=== PATIENT | female | born 1935 | race Caucasian/White ===

== ENCOUNTER 2016-11-16 14:13 | Emergency (ER) | payer OTHER, MEDICARE ==
[2016-11-16 14:20] VITALS: BMI 18.6
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
[2016-11-16] MEDS ORDERED: ACETAMINOPHEN 325 MG TABLET (FP) PO ONE (16:15)
[2016-11-16] MEDS ORDERED: ACETAMINOPHEN 325 MG TABLET (FP) ONE (16:16)
--- NOTE | 2016-11-16 17:57 | PDOC ---
*Physical Exam - Vital Signs Last Vital Signs Temp Pulse Resp BP Pulse Ox 97.7 F 75 20 112/76 99 11/16/16 14:15 11/16/16 14:15 11/16/16 14:15 11/16/16 14:15 11/16/16 14:15 - Physical Exam Comments: 11/16/16 18:35 GENERAL: Awake, alert, and fully oriented, in no acute distress HEAD: No signs of trauma EYES: PERRLA, EOMI, sclera anicteric, conjunctiva clear ENT: Auricles normal inspection, hearing grossly normal, nares patent, oropharynx clear without exudates. Moist mucosa NECK: Normal ROM, supple, no lymphadenopathy, JVD, or masses LUNGS: Breath sounds equal, clear to auscultation bilaterally. No wheezes, and no crackles HEART: Regular rate and rhythm, normal S1 and S2, no murmurs, rubs or gallops ABDOMEN: Soft, nontender, normoactive bowel sounds. No guarding, no rebound. No masses EXTREMITIES: Normal range of motion, no edema. No clubbing or cyanosis. No cords, erythema, or tenderness NEUROLOGICAL: Cranial nerves II through XII grossly intact. Normal speech, normal gait SKIN: +Small bruise size of a hard boiled egg north of the ankle over the achilles tendon Tendon intact, no evidence of compartment syndrome. Warm, Dry, normal turgor, no rashes or lesions noted. <Ya Connell - Last Filed: 11/16/16 18:37> - Vital Signs Last Vital Signs Temp Pulse Resp BP Pulse Ox 97.7 F 75 20 112/76 99 11/16/16 14:15 11/16/16 14:15 11/16/16 14:15 11/16/16 14:15 11/16/16 14:15 <Jose Roberto Coughlin - Last Filed: 11/16/16 18:51> ED Treatment Course - Medications Given in the ED: ED Medications Discontinued Medications Generic Name Dose Route Start Last Admin Trade Name Freq PRN Reason Stop Dose Admin Acetaminophen 650 mg 11/16/16 16:15 11/16/16 16:24 Tylenol - PO 11/16/16 16:16 650 mg ONCE ONE Administration <aY Connell - Last Filed: 11/16/16 18:37> - Medications Given in the ED: ED Medications Discontinued Medications Generic Name Dose Route Start Last Admin Trade Name Jerry PRN Reason Stop Dose Admin Acetaminophen 650 mg 11/16/16 16:15 11/16/16 16:24 Tylenol - PO 11/16/16 16:16 650 mg ONCE ONE Administration <Jose Roberto Coughlin - Last Filed: 11/16/16 18:51> Medical Decision Making - Medical Decision Making 11/16/16 18:[address] Ring (patient's cousin). Discussed case with family member. <Ya Connell - Last Filed: 11/16/16 18:37> *DC/Admit/Observation/Transfer - Attestations Scribe Attestion: 11/16/16 18:37 Documentation prepared by Ya Connell, acting as medical doctor nuclear medicine for Jose Roberto Coughlin MD/. <Ya Connell - Last Filed: 11/16/16 18:37> - Discharge Dispostion Admit: No - Attestations Physician Attestion: 11/16/16 17:57 I, Dr. Jose Roberto Coughlin, attest that this document has been prepared under my direction and personally reviewed by me in its entirety. I further attest, that it accurately reflects all work, treatment, procedures and medical decision -making performed by me. <Jose Roberto Coughlin - Last Filed: 11/16/16 18:51> Diagnosis at time of Disposition: Traumatic ecchymosis of left lower leg Qualifiers: Encounter type: initial encounter Qualified Code(s): S80.12XA - Contusion of left lower leg, initial encounter - Discharge Dispostion Disposition: HOME Condition at time of disposition: Stable - Referrals Referrals: Winnie Domínguez MD [Primary Care Provider] - Call tomorrow - Patient Instructions Printed Discharge Instructions: DI for Hematoma (Bruise) Additional Instructions: Discharge Instructions: -Take Tylenol if needed for pain -Use Air Cast for comfort -Call your doctor tomorrow to schedule follow up appointment -Return to the ER with any worsening or concerning symptoms - Post Discharge Activity
[2016-11-16 21:25] VITALS: BP 118/66; PULSE 78; TEMP 97.8
== END 2016-11-16 21:23 | disposition home or self-care (01) ==
LOC: JER 14:13 → JERFT 14:13 → JER 21:23
DX: S80.12XA Contusion of left lower leg, initial encounter (principal); W20.8XXA Other cause of strike by thrown, projected or falling object, initial encounter; Y93.89 Activity, other specified; Y92.512 Supermarket, store or market as the place of occurrence of the external cause; I25.10 Atherosclerotic heart disease of native coronary artery without angina pectoris; I10 Essential (primary) hypertension; Z95.5 Presence of coronary angioplasty implant and graft; D45 Polycythemia vera; J44.9 Chronic obstructive pulmonary disease, unspecified; Z85.038 Personal history of other malignant neoplasm of large intestine; Z85.42 Personal history of malignant neoplasm of other parts of uterus
CPT/HCPCS: 73590-TC-LT; 73610-TC-LT; 73630-TC-LT; 99282-25

== ENCOUNTER 2017-07-02 19:06 | Inpatient (IN) | payer OTHER, MEDICARE ==
--- NOTE | 2017-07-02 19:14 | PDOC ---
History of Present Illness - History of Present Illness Initial Comments: 07/02/17 19:30 The patient is an 82 year old female, with a significant past medical history of gout and CHF, who presents to the emergency department by EMS with nasal congestion and cough for 1 week. Patient states that she has productive cough with yellow sputum. Patient also reports having diarrhea recently. She denies recent fevers, chills, headache or dizziness. She denies recent nausea, vomit, diarrhea or constipation. She denies recent dysuria, frequency, urgency or hematuria. She denies recent chest pain or shortness of breath. Allergies: digoxin, diltiazem Past surgical history: None reported. Social history: Nonsmoker. Denies EtOH use and recreational drug use. Primary Care Physician: Winnie Domínguez Cardiology: Brandin Hamm Medication: Lasiks, Metoprolol <Annette Velásquez - Last Filed: 07/02/17 22:34> <Marlen Melo - Last Filed: 07/02/17 23:10> - General Stated Complaint: COLD SYMPTOMS Time Seen by Provider: 07/02/17 19:14 Past History <Annette Velásquez - Last Filed: 07/02/17 22:34> - Past Medical History Anemia: Yes (polycythemia vera) Cancer: Yes (COLON CANCER, status post colectomy 1997, myelofibrosis) Cardiac Disorders: Yes (a-fib, Stent X2 , S/P CARDIAC CATH) CVA: No COPD: Yes CHF: Yes (history of CHF, but echo showed good systolic function.) DVT: No Dementia: No Diabetes: No Dialysis: No GI Disorders: Yes (ACID REFLUX, GERD, S/P partial colectomy, Colon CA) Disorders: (h/o uterine CA) HTN: Yes Hypercholesterolemia: No Liver Disease: No Seizures: No Thyroid Disease: No - Surgical History Abdominal Surgery: Yes (PARTIAL COLON RESECTION) Appendectomy: No Cardiac Surgery: Yes Cholecystectomy: No Lung Surgery: No Orthopedic Surgery: No - Immunization History Immunization Up to Date: Yes - Suicide/Smoking/Psychosocial Hx Smoking Status: No Smoking History: Never smoked Have you smoked in the past 12 months: No Number of Cigarettes Smoked Daily: 0 Hx Alcohol Use: No Drug/Substance Use Hx: No Substance Use Type: None Hx Substance Use Treatment: No <Marlen Melo - Last Filed: 07/02/17 23:10> - Past Medical History Allergies/Adverse Reactions: Allergies Allergy/AdvReac Type Severity Reaction Status Date / Time digoxin Allergy Intermediate Vomiting Verified 06/06/17 10:43 diltiazem HCl [From Cardizem] Allergy Verified 11/16/16 14:20 Home Medications: Ambulatory Orders B-12 06/01/17 Claritin 1 PO DAILY 06/01/17 Feosol 325 mg PO DAILY 06/01/17 Folic Acid 1 mg PO DAILY 06/01/17 Lasix 40 mg PO DAILY 06/01/17 Protonix 06/01/17 Toprol Xl 100 mg PO DAILY 06/01/17 Ciclopirox [Penlac] 6.6 ml TP DAILY #1 bottle 06/06/17 Respiratory Specific PMHX - Complaint Specific PMHX Angina: Yes Pulmonary Embolus: No <KameronMarlenlois Phillips - Last Filed: 07/02/17 23:10> Review of Systems - Review of Systems Comments:: 07/02/17 20:15 CONSTITUTIONAL: Present: fever Absent:chills, diaphoresis, generalized weakness, malaise, loss of appetite HEENT: Present: nasal congestion Absent: rhinorrhea, throat pain, throat swelling, difficulty swallowing, mouth swelling, ear pain, eye pain, visual changes CARDIOVASCULAR: Absent: chest pain, syncope, palpitations, irregular heart rate, lightheadedness , peripheral edema RESPIRATORY: Absent: productive cough with yellow sputum, cough, shortness of breath, dyspnea with exertion, orthopnea, wheezing, stridor, hemoptysis GASTROINTESTINAL: Present: diarrhea Absent: abdominal pain, abdominal distension, nausea, vomiting, constipation, melena, hematochezia GENITOURINARY: Absent: dysuria, frequency, urgency, hesitancy, hematuria, flank pain, genital pain MUSCULOSKELETAL: Absent: myalgia, arthralgia, joint swelling SKIN: Absent: rash, itching, pallor HEMATOLOGIC/IMMUNOLOGIC: Absent: easy bleeding, easy bruising, lymphadenopathy, frequent infections ENDOCRINE: Absent: unexplained weight gain, unexplained weight loss, heat intolerance, cold intolerance NEUROLOGIC: Absent: headache, focal weakness or paresthesias, dizziness, unsteady gait, seizure, mental status changes, bladder or bowel incontinence PSYCHIATRIC: Absent: anxiety, depression, suicidal or homicidal ideation, hallucinations. <Annette Velásquez - Last Filed: 07/02/17 22:34> *Physical Exam - Vital Signs Last Vital Signs Temp Pulse Resp BP Pulse Ox 99.2 F 85 18 125/59 95 07/02/17 19:19 07/02/17 19:19 07/02/17 19:19 07/02/17 19:19 07/02/17 19:19 - Physical Exam Comments: 07/02/17 20:15 GENERAL: Dry, hacking cough. Well developed, well nourished. Awake and alert. No acute distress. HEENT: Normocephalic, atraumatic. PERRLA, EOMI. No conjunctival pallor. Sclera are non- icteric. Moist mucous membranes. Oropharynx is clear. NECK: Supple. Full ROM. No JVD. Carotid pulses 2+ and symmetric, without bruits. No thyromegaly. No lymphadenopathy. CARDIOVASCULAR: Regular rate and rhythm. Systolic murmur. No rubs, or gallops. PULMONARY: Bilateral rhonchi to bases bilaterally. ABDOMINAL: Soft. Non-tender. Non-distended. No rebound or guarding. No organomegaly. Normoactive bowel sounds. MUSCULOSKELETAL Normal range of motion at all joints. No bony deformities or tenderness. No CVA tenderness. EXTREMITIES: Bilateral pedal pitting edema. Fungi on toes. No cyanosis. No clubbing. No calf tenderness. SKIN: Very warm to touch and dry. Normal capillary refill. No rashes. No jaundice. NEUROLOGICAL: Alert, awake, appropriate. Cranial nerves 2-12 intact. No deficits to light touch and temperature in face, upper extremities and lower extremities. No motor deficits in the in face, upper extremities and lower extremities. Normoreflexic in the upper and lower extremities. Normal speech. Toes are down-going bilaterally. Gait is normal without ataxia. PSYCHIATRIC: Cooperative. Good eye contact. Appropriate mood and affect. <Annette Velásquez - Last Filed: 07/02/17 22:34> ED Treatment Course - LABORATORY CBC & Chemistry Diagram: 07/02/17 20:17 07/02/17 21:34 - Consult/PCP Time Called: 22:30 (awaiting call back from Dr. Domínguez) <Annette Velásquez - Last Filed: 07/02/17 22:34> - LABORATORY CBC & Chemistry Diagram: 07/02/17 20:17 07/02/17 21:34 <Marlen Melo - Last Filed: 07/02/17 23:10> *DC/Admit/Observation/Transfer - Attestations Scribe Attestion: 07/02/17 20:19 Documentation prepared by Annette Velásquez, acting as medical van driver for aMrlen Melo MD. <Annette Velásquez - Last Filed: 07/02/17 22:34> - Discharge Dispostion Admit: Yes <Marlen Melo - Last Filed: 07/02/17 23:10> Diagnosis at time of Disposition: Polycythemia rubra vera, Hyponatremia Leukocytosis Qualifiers: Leukocytosis type: other Qualified Code(s): D72.828 - Other elevated white blood cell count Fever Qualifiers: Fever type: due to other condition Qualified Code(s): R50.81 - Fever presenting with conditions classified elsewhere Pneumonia Qualifiers: Pneumonia type: due to unspecified organism Laterality: right Lung location: lower lobe of lung Qualified Code(s): J18.1 - Lobar pneumonia, unspecified organism - Discharge Dispostion Condition at time of disposition: Stable
[2017-07-02] MEDS ORDERED: SODIUM CHLORIDE 0.9% 1000 ML INFUS.BAG IV STA (20:03)
[2017-07-02] MEDS ORDERED: ACETAMINOPHEN 325 MG TABLET (FP) PO ONE (20:04)
[2017-07-02 20:33] LABS: VENOUS PH 7.28 (7.32-7.42)
[2017-07-02 20:33] LABS: HEMATOCRIT 35.2 % (32.4-45.2); HEMOGLOBIN 11.1 GM/dL (10.7-15.3); MCH 30.1 pg (25.7-33.7); MCHC 31.6 g/dl (32.0-36.0); MEAN CELL VOLUME 95.2 fl (80-96); PLATELET COUNT 909 K/MM3 (134-434); RBC 3.69 M/mm3 (3.60-5.2); RDW 20.3 % (11.6-15.6)
[2017-07-02 20:34] LABS: VENOUS PC02 36.4 mmHg (38-52); VENOUS PO2 13.8 mmHg (28-48)
[2017-07-02 20:38] LABS: WHITE BLOOD COUNT 40.8 K/mm3 (4.0-10.0)
[2017-07-02 20:46] LABS: INR 1.24 (0.82-1.09)
[2017-07-02] MEDS ORDERED: LEVOFLOXACIN 500 MG IVPB 500 MG/100 ML BAG IVPB ONE ×2 (21:47→21:54)
[2017-07-02 22:05] LABS: ALBUMIN 3.5 g/dl (3.4-5.0); ANION GAP 15 (8-16); BLOOD UREA NITROGEN 60 mg/dL (7-18); CALCIUM 8.2 mg/dL (8.5-10.1); CHLORIDE 97 mmol/L (98-107); CO2 14 mmol/L (21-32); GLUCOSE,RANDOM 113 mg/dL (74-106); POTASSIUM 5.1 mmol/L (3.5-5.1); SODIUM 126 mmol/L (136-145)
[2017-07-02 22:10] LABS: ALK PHOS 337 U/L (45-117); BILIRUBIN,TOTAL 1.2 mg/dL (0.2-1.0); CREATININE 2.2 mg/dL (0.55-1.02); N-TERMINAL BNP 20916.08 pg/ml (5-450); SGOT/AST 36 U/L (15-37); SGPT/ALT 35 U/L (12-78); TOT PROT 6.9 g/dl (6.4-8.2)
[2017-07-02 22:25] LABS: URINE APPEARANCE SLCLOUDY; URINE BILIRUBIN NEGATIVE (NEGATIVE); URINE BLOOD NEGATIVE (NEGATIVE); URINE COLOR YELLOW; URINE GLUCOSE (UA) NEGATIVE (NEGATIVE); URINE KETONE NEGATIVE (NEGATIVE); URINE LEUK ESTERASE NEGATIVE (NEGATIVE); URINE NITRITE NEGATIVE (NEGATIVE); URINE PROTEIN 3+ (NEGATIVE); URINE UROBILINOGEN NEGATIVE mg/dL (0.2-1.0)
[2017-07-02 22:30] LABS: URINE BACTERIA RARE /hpf (NONE SEEN)
[2017-07-02] MEDS ORDERED: CEFTRIAXONE 1 GM in DEXTROSE 5%-WATER - 50 ML IVPB ONE (22:34)
[2017-07-02] MEDS ORDERED: AZITHROMYCIN IVPB 500 MG in DEXTROSE 5%-WATER - 250 ML IVPB ONE (23:06)
[2017-07-02 23:17] LABS: ANISOCYTOSIS 2+; MACROCYTOSIS 1+; OVALOCYTE 1+
[2017-07-02] MEDS ORDERED: METOPROLOL SUCCINATE 100 MG TAB.SR.24H (FP) PO SCH (23:30)
[2017-07-02] MEDS ORDERED: CLOPIDOGREL BISULFATE 75 MG TABLET (FP) PO SCH (23:30)
[2017-07-02] MEDS ORDERED: CEFTRIAXONE 1 GM/50 ML BAG ONE (23:36)
[2017-07-03] MEDS ORDERED: AZITHROMYCIN IVPB 250 ML IVPB ONE (00:15)
[2017-07-03 03:24] VITALS: BMI 19.6
[2017-07-03] MEDS ORDERED: PT OWN MED DRAWER 7, Y5N ONE ×5 (05:38→16:12)
[2017-07-03] MEDS: CEFTRIAXONE 1 G/50 ML PREMIX 50 ML IVPB SCH (09:13)
[2017-07-03] MEDS: FUROSEMIDE 40 MG/4 ML INJECTABLE VIAL IVPUSH SCH (09:13)
[2017-07-03] MEDS: TOPROL 50 MG PO SCH (09:17)
[2017-07-03] MEDS: PLAVIX 75 MG PO SCH (09:29)
[2017-07-03] MEDS ORDERED: CLOPIDOGREL BISULFATE 75 MG TABLET (FP) PO SCH (10:00)
[2017-07-03] MEDS ORDERED: METOPROLOL SUCCINATE 100 MG TAB.SR.24H (FP) PO SCH (10:00)
--- NOTE | 2017-07-03 10:15 | CON.CARD ---
Consult Consult Specialty:: Cardiology Reason for Consultation:: congestion - History of Present Illness History of Present Illness: The patient is an 82 year old female, with a significant past medical history of gout and CHF, who presents to the emergency department by EMS with nasal congestion and cough for 1 week. Patient states that she has productive cough with yellow sputum. Patient also reports having diarrhea recently. She denies recent fevers, chills, headache or dizziness. She denies recent nausea, vomit, diarrhea or constipation. She denies recent dysuria, frequency, urgency or hematuria. She denies recent chest pain or shortness of breath. Allergies: digoxin, diltiazem Past surgical history: None reported. Social history: Nonsmoker. Denies EtOH use and recreational drug use. Primary Care Physician: Winnie Domínguez Cardiology: Brandin Hamm Medication: Lasiks, Metoprolol PMH AFL RFA 03/10/16 Dr Parrish Colectomy (partial) PCI RCA ISR ARMAAN and LE angiography 09/19/2013 Dr. Mcgee CARDIOLOGY NURSE/stent right SFA 12/12/2013 Dr. Mcgee uterine fibromas removal Ongoing medical problems Anemia ASHD negative MIBI 2010 CAD 3 V ostial RCA 80-90%, mLAD 50%, D1 80% 2011 celiac artery stenosis colon cancer ARMAAN Ostial RCA 2011 [facility] 3V CAD 06/14/13 PAD s/p CARDIOLOGY NURSE RSFA August 2012 Dr. Mcgee PAD s/p right mid SFA stent 2011 Paroxysmal A fib not on AC due to thrombocytosis but bleeding 2014 Paroxysmal A fib not on AC due to thrombocytosis but bleeding 2014 polycythemia vera CARDIOLOGY NURSE right SFA ISR 06/14/13 Dr. Mcgee CARDIOLOGY NURSE/stent RSF November 2013 Dr. Mcgee right subclavian stenosis with steal phenomenon 2016 shingles s/AF ablation dr. Golden Parrish 2015 ECHO 2016 SUMMARY 1. Normal left ventricular size with moderate reduced systolic function; ejection fraction 41%. 2. Moderate global hypokinesis with flattening of septum, due to right ventricle pressure overload. 3. Severe left atrial enlargement. 4. Aortic valve mildly thickened. 5. Moderate mitral valve regurgitation. 6. Severe tricuspid valve regurgitation with right ventricle systolic pressure of 65 mmHg, compatible with severe pulmonary hypertension. - History Source History Provided By: Patient, Medical Record - Past Medical History Cardio/Vascular: Yes: AFIB, CAD (with stents), CHF, HTN, Hyperlipdemia, [place], Other Pulmonary: Yes: COPD. No: Asthma, Bronchitis, Cancer, O2 Dependent, Pneumonia, Previously Intubated, Pulmonary Embolus, Pulmonary Fibrosis, Sleep Apnea, Other Gastrointestinal: Yes: Cancer (colon), GERD ...: No Psych: Yes: Anxiety. 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, [employer] History of Recent Travel: No Home Medications - Allergies Allergies/Adverse Reactions: Allergies Allergy/AdvReac Type Severity Reaction Status Date / Time digoxin Allergy Intermediate Vomiting Verified 07/02/17 23:50 diltiazem HCl [From Cardizem] Allergy Verified 07/02/17 23:50 - Home Medications Home Medications: Ambulatory Orders B-12 06/01/17 Claritin 1 PO DAILY 06/01/17 Feosol 325 mg PO DAILY 06/01/17 Folic Acid 1 mg PO DAILY 06/01/17 Lasix 40 mg PO DAILY 06/01/17 Protonix 40 mg PO QID 06/01/17 Toprol Xl 100 mg PO DAILY 06/01/17 Ciclopirox [Penlac] 6.6 ml TP DAILY #1 bottle 06/06/17 Allopurinol [Zyloprim -] 100 mg PO DAILY 07/03/17 Clopidogrel Bisulfate [Plavix] 75 mg PO DAILY 07/03/17 Multivitamin [Daily Multiple Vitamin] 1 each PO DAILY 07/03/17 Ranitidine HCl [Zantac 75] 75 mg PO ACBK 07/03/17 Ruxolitinib Phosphate [Jakafi] 10 mg PO BID 07/03/17 Family Disease History - Family Disease History Family Disease History: Heart Disease: Father, Mother Review of Systems - Review of Systems Constitutional: reports: No Symptoms Eyes: reports: No Symptoms HENT: reports: No Symptoms Neck: reports: No Symptoms Cardiovascular: reports: No Symptoms Respiratory: reports: Cough Gastrointestinal: reports: No Symptoms Genitourinary: reports: No Symptoms Breasts: reports: No Symptoms Reported Musculoskeletal: reports: No Symptoms Integumentary: reports: No Symptoms Neurological: reports: No Symptoms Endocrine: reports: No Symptoms Hematology/Lymphatic: reports: No Symptoms Psychiatric: reports: No Symptoms Vital Signs: Vital Signs Temperature 97.4 F L 07/03/17 06:00 Pulse Rate 71 07/03/17 06:00 Respiratory Rate 20 07/03/17 06:00 Blood Pressure 128/65 07/03/17 06:00 O2 Sat by Pulse Oximetry (%) 99 07/02/17 23:41 Constitutional: Yes: Well Nourished, No Distress, Calm Eyes: Yes: WNL, Conjunctiva Clear, EOM Intact HENT: Yes: WNL, Atraumatic, Normocephalic Neck: Yes: WNL, Supple, Trachea Midline Respiratory: Yes: WNL, Regular, CTA Bilaterally Gastrointestinal: Yes: WNL, Normal Bowel Sounds Renal/: Yes: WNL Cardiovascular: Yes: WNL, Regular Rate and Rhythm Musculoskeletal: Yes: WNL Extremities: Yes: WNL Integumentary: Yes: WNL Neurological: Yes: WNL, Alert, Oriented ...Motor Strength: WNL Psychiatric: Yes: WNL, Alert, Oriented - Other Data Labs, Other Data: CBC, BMP 07/02/17 20:17 07/02/17 21:34 INR, PTT INR 1.24 (0.82-1.09) H D 07/02/17 20:17 Troponin, BNP 07/02/17 07/02/17 20:17 21:34 Troponin I Cancelled 0.10 H B-Natriuretic Peptide Cancelled 20610.08 H Troponin, BNP 07/02/17 07/02/17 20:17 21:34 Troponin I Cancelled 0.10 H B-Natriuretic Peptide Cancelled 12996.08 H Imaging - Results Chest X-ray: Image Reviewed (cm no i/e) EKG: Pending Problem List - Problems (1) Fever Code(s): R50.9 - FEVER, UNSPECIFIED Qualifiers: Fever type: due to other condition Qualified Code(s): R50.81 - Fever presenting with conditions classified elsewhere (2) Hyponatremia Code(s): E87.1 - HYPO-OSMOLALITY AND HYPONATREMIA (3) Pneumonia Code(s): J18.9 - PNEUMONIA, UNSPECIFIED ORGANISM Qualifiers: Pneumonia type: due to unspecified organism Laterality: right Lung location: lower lobe of lung Qualified Code(s): J18.1 - Lobar pneumonia, unspecified organism (4) Polycythemia rubra vera Code(s): D45 - POLYCYTHEMIA VERA (5) Leukocytosis Code(s): D72.829 - ELEVATED WHITE BLOOD CELL COUNT, UNSPECIFIED Qualifiers: Leukocytosis type: other Qualified Code(s): D72.828 - Other elevated white blood cell count (6) Atrial fibrillation and flutter Code(s): I48.91 - UNSPECIFIED ATRIAL FIBRILLATION; I48.92 - UNSPECIFIED ATRIAL FLUTTER (7) Atypical chest pain Code(s): R07.89 - OTHER CHEST PAIN (8) Hyperlipidemia Code(s): E78.5 - HYPERLIPIDEMIA, UNSPECIFIED (9) Myelofibrosis Code(s): D75.81 - MYELOFIBROSIS (10) Palpitations Code(s): R00.2 - PALPITATIONS (11) Traumatic ecchymosis of left lower leg Code(s): S80.12XA - CONTUSION OF LEFT LOWER LEG, INITIAL ENCOUNTER Qualifiers: Encounter type: initial encounter Qualified Code(s): S80.12XA - Contusion of left lower leg, initial encounter (12) Anemia Code(s): D64.9 - ANEMIA, UNSPECIFIED (13) Atrial fib/flutter, transient Code(s): ROU2277 - (14) CHF (congestive heart failure) Code(s): I50.9 - HEART FAILURE, UNSPECIFIED (15) COPD (chronic obstructive pulmonary disease) Code(s): J44.9 - CHRONIC OBSTRUCTIVE PULMONARY DISEASE, UNSPECIFIED (16) GERD (gastroesophageal reflux disease) Code(s): K21.9 - GASTRO-ESOPHAGEAL REFLUX DISEASE WITHOUT ESOPHAGITIS (17) HTN (hypertension) Code(s): I10 - ESSENTIAL (PRIMARY) HYPERTENSION (18) History of colon cancer Code(s): Z85.038 - PERSONAL HISTORY OF MALIGNANT NEOPLASM OF LARGE INTESTINE (19) History of hypertension Code(s): Z86.79 - PERSONAL HISTORY OF OTHER DISEASES OF THE CIRCULATORY SYSTEM (20) History of uterine cancer Code(s): Z85.42 - PERSONAL HISTORY OF MALIGNANT NEOPLASM OF OTH PRT UTERUS (21) Hyperkalemia Code(s): E87.5 - HYPERKALEMIA (22) Mitral regurgitation Code(s): I34.0 - NONRHEUMATIC MITRAL (VALVE) INSUFFICIENCY Assessment/Plan CHF systolic exacorbation r/o bronchitis cri AFL RFA 03/10/16 Dr Parrish Colectomy (partial) PCI RCA ISR ARMAAN and LE angiography 09/19/2013 Dr. Mcgee CARDIOLOGY NURSE/stent right SFA 12/12/2013 Dr. Mcgee uterine fibromas removal Anemia ASHD negative MIBI 2010 CAD 3 V ostial RCA 80-90%, mLAD 50%, D1 80% 2011 celiac artery stenosis colon cancer ARMAAN Ostial RCA 2011 [facility] 3V CAD 06/14/13 PAD s/p CARDIOLOGY NURSE RSFA August 2012 Dr. Mcgee PAD s/p right mid SFA stent 2011 Paroxysmal A fib not on AC due to thrombocytosis but bleeding 2014 polycythemia vera CARDIOLOGY NURSE right SFA ISR 06/14/13 Dr. Mcgee CARDIOLOGY NURSE/stent RSF November 2013 Dr. Mcgee right subclavian stenosis with steal phenomenon 2015 shingles s/AF ablation dr. Golden Parrish 2015 Plan; lasix abx will f/u
[2017-07-03] MEDS: AZITHROMYCIN IVPB 500 MG in DEXTROSE 5%-WATER - 250 ML IVPB SCH (11:06)
--- NOTE | 2017-07-03 18:12 | PN ---
Progress Note, Physician - Current Medication List Current Medications: Active Medications Furosemide (Lasix Injection -) 40 mg IVPUSH DAILY BRANDEN Last Admin: 07/03/17 09:13 Dose: 40 mg CEFTRIAXONE 1 G/50 ML PREMIX (Ceftriaxone 1 Gm-D5w Bag) 50 mls @ 200 mls/hr IVPB DAILY BRANDEN Last Admin: 07/03/17 09:13 Dose: 200 mls/hr Azithromycin 500 mg/ Dextrose 250 mls @ 250 mls/hr IVPB DAILY BRANDEN Last Admin: 07/03/17 11:06 Dose: 250 mls/hr Lactobacillus Acidophilus (Bacid -) 1 tab PO DAILY BRANDEN Plavix 75 Mg Tablet (- Patient Own Med) 1 each PO DAILY BRANDEN Last Admin: 07/03/17 09:29 Dose: 1 each Toprol Xl 50 Mg Tablet - Patient Own Med 2 each PO DAILY BRANDEN Last Admin: 07/03/17 09:17 Dose: 2 each Non-Formulary Medication (Patient's Own Med) 1 each PO DAILY BRANDEN Non-Formulary Medication (Patient's Own Med) 1 each PO DAILY BRANDEN Non-Formulary Medication (Patient's Own Med) 1 each PO DAILY BRANDEN Non-Formulary Medication (Patient's Own Med) 1 each PO DAILY BRANDEN Ranitidine HCl (Zantac -) 150 mg PO DAILY BRANDEN - Objective Vital Signs: Vital Signs Temperature 97.4 F L 07/03/17 18:06 Pulse Rate 76 07/03/17 18:06 Respiratory Rate 18 07/03/17 18:06 Blood Pressure 135/64 07/03/17 18:06 O2 Sat by Pulse Oximetry (%) 98 07/03/17 09:00 Labs: CBC, BMP 07/02/17 20:17 07/02/17 21:34 INR, PTT INR 1.24 (0.82-1.09) H D 07/02/17 20:17
--- NOTE | 2017-07-03 19:30 | HP ---
Admitting History and Physical - Admission Chief Complaint: weaknes, cough for approximately 2 weeks History of Present Illness: 82 yo female with PMH of CHF and PCV, under treatment with Jakafi came in with complaints of cough. She denies fever. The patient presented to ER and was admitted. She was given Ceftriaxone and Zithromax and immediately after that the patient developed diarrhea, with loose watery stools but without blood or mucosities.The patient denies any abdominal pain. - Past Medical History Cardiovascular: Yes: AFIB, CAD (with stents), CHF, HTN, Hyperlipdemia, [place], Other Pulmonary: Yes: COPD. No: Asthma, Bronchitis, Cancer, O2 Dependent, Pneumonia, Previously Intubated, Pulmonary Embolus, Pulmonary Fibrosis, Sleep Apnea, Other Gastrointestinal: Yes: Cancer (colon), GERD ...: No Heme/Onc: Yes: B12 Deficiency. No: Anemia, Bleeding Disorder, Cancer, Current Radiation Therapy, Hemochromatosis, Hypercoaguable State, Myeloproliferative Synd, Sickle Cell Disease, Sickle Cell Trait, Thrombocytopenia, Other Psych: Yes: Anxiety. 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, [employer] History of Recent Travel: No Home Medications - Allergies Allergies/Adverse Reactions: Allergies Allergy/AdvReac Type Severity Reaction Status Date / Time digoxin Allergy Intermediate Vomiting Verified 07/02/17 23:50 diltiazem HCl [From Cardizem] Allergy Verified 07/02/17 23:50 - Home Medications Home Medications: Ambulatory Orders B-12 06/01/17 Claritin 1 PO DAILY 06/01/17 Feosol 325 mg PO DAILY 06/01/17 Folic Acid 1 mg PO DAILY 06/01/17 Lasix 40 mg PO DAILY 06/01/17 Protonix 40 mg PO QID 06/01/17 Allopurinol [Zyloprim -] 100 mg PO DAILY 07/03/17 Multivitamin [Daily Multiple Vitamin] 1 each PO DAILY 07/03/17 Ranitidine HCl [Zantac 75] 75 mg PO ACBK 07/03/17 Ruxolitinib Phosphate [Jakafi] 10 mg PO BID 07/03/17 Allopurinol [Zyloprim -] 100 mg PO DAILY tablet 07/06/17 Amox-Tr/K Cl [Augmentin 500-125mg Tablet -] 1 tab PO BID@0800,1730 #14 tablet Guaifenesin AC [Robitussin AC -] 10 ml PO Q8H PRN #120 ud MDD 30 07/06/17 Lactobacillus Acidophilus [Bacid -] 1 tab PO BID 7 Days #14 tab 07/06/17 Patient's Own Medication [Patient's Own Med (Nf) -] 1 each PO DAILY med Patient's Own Medication [Patient's Own Med (Nf) -] 1 each PO HS med 07/06/17 Family Disease History - Family Disease History Family Disease History: Heart Disease: Father, Mother Review of Systems - Review of Systems Constitutional: reports: No Symptoms Eyes: reports: No Symptoms HENT: reports: No Symptoms, Hearing Loss Neck: reports: Swollen Glands Cardiovascular: reports: No Symptoms Respiratory: reports: Cough, SOB Gastrointestinal: reports: Diarrhea. denies: Rectal Bleeding, Vomiting, Vomiting Blood Genitourinary: reports: Incontinence Breasts: reports: No Symptoms Reported Musculoskeletal: reports: Muscle Weakness. denies: Joint Pain, Joint Swelling Psychiatric: reports: Anxiety Physical Examination Vital Signs: Vital Signs Temperature 97.4 F L 07/03/17 18:06 Pulse Rate 76 07/03/17 18:06 Respiratory Rate 18 07/03/17 18:06 Blood Pressure 135/64 07/03/17 18:06 O2 Sat by Pulse Oximetry (%) 98 07/03/17 09:00 Constitutional: Yes: No Distress, Calm Eyes: Yes: Conjunctiva Clear HENT: Yes: Atraumatic, Normocephalic Neck: Yes: Supple, Trachea Midline Cardiovascular: Yes: Regular Rate and Rhythm, S1, S2 Respiratory: Yes: Regular, CTA Bilaterally Gastrointestinal: Yes: Soft, Abdomen, Obese. No: Hepatomegaly, Splenomegaly Labs: CBC, BMP 07/02/17 20:17 07/02/17 21:34 Imaging - Results Chest X-ray: Other (no pleural effusion, no infiltrate, no masses) Problem List - Problems (1) Bronchitis Code(s): J40 - BRONCHITIS, NOT SPECIFIED ACUTE OR CHRONIC (2) Atrial fibrillation and flutter Code(s): I48.91 - UNSPECIFIED ATRIAL FIBRILLATION; I48.92 - UNSPECIFIED ATRIAL FLUTTER (3) CHF (congestive heart failure) Code(s): I50.9 - HEART FAILURE, UNSPECIFIED (4) Diarrhea Assessment/Plan: start Bacid 1 tab po bid Code(s): R19.7 - DIARRHEA, UNSPECIFIED
--- NOTE | 2017-07-03 22:03 | EKG ---
Test Reason : Blood Pressure : / mmHG Vent. Rate : 071 BPM Atrial Rate : 071 BPM P-R Int : 180 ms QRS Dur : 084 ms QT Int : 442 ms P-R-T Axes : 083 054 072 degrees QTc Int : 480 ms SINUS RHYTHM WITH PREMATURE ATRIAL COMPLEXES NONSPECIFIC ST AND T WAVE ABNORMALITY WHEN COMPARED WITH ECG OF 08-FEB-2016 22:36, PREMATURE ATRIAL COMPLEXES ARE NOW PRESENT Confirmed by BHUMI MCCLOUD, SHASHANK ([id number]) on 07/03/2017 10:03:21 PM Referred By: Confirmed By:SHASHANK TRIPATHI MD
[2017-07-04] MEDS ORDERED: BISMUTH SUBSALICYLATE 524 MG/30 ML UD PO PRN (07:05)
[2017-07-04] MEDS ORDERED: POTASSIUM CHLORIDE 10 MEQ in DEXTROSE 5%-NORMAL SALINE 1,000 ML IVPB SCH (07:15)
[2017-07-04 08:00] LABS: HEMATOCRIT 27.8 % (32.4-45.2); HEMOGLOBIN 8.7 GM/dL (10.7-15.3); MCH 29.5 pg (25.7-33.7); MCHC 31.3 g/dl (32.0-36.0); MEAN CELL VOLUME 94.2 fl (80-96); MEAN PLT VOLUME 8.4 fl (7.5-11.1); PLATELET COUNT 628 K/MM3 (134-434); RBC 2.95 M/mm3 (3.60-5.2); RDW 20.4 % (11.6-15.6)
[2017-07-04 08:14] LABS: ANION GAP 15 (8-16); BILIRUBIN,TOTAL 1.1 mg/dL (0.2-1.0); BLOOD UREA NITROGEN 51 mg/dL (7-18); CALCIUM 8.1 mg/dL (8.5-10.1); CHLORIDE 104 mmol/L (98-107); CO2 16 mmol/L (21-32); CREATININE 1.8 mg/dL (0.55-1.02); GLUCOSE,RANDOM 84 mg/dL (74-106); POTASSIUM 4.1 mmol/L (3.5-5.1); SGOT/AST 28 U/L (15-37); SGPT/ALT 29 U/L (12-78); SODIUM 135 mmol/L (136-145)
[2017-07-04 08:15] LABS: ALK PHOS 260 U/L (45-117); TOT PROT 6.1 g/dl (6.4-8.2)
[2017-07-04 08:21] LABS: WHITE BLOOD COUNT 39.4 K/mm3 (4.0-10.0)
[2017-07-04] MEDS ORDERED: PT OWN MED DRAWER 7, Y5N ONE ×2 (09:22→20:44)
[2017-07-04] MEDS: LACTOBACILLUS ACIDOPHILUS 1 EACH TAB (FP) PO SCH (09:42)
[2017-07-04] MEDS: CEFTRIAXONE 1 G/50 ML PREMIX 50 ML IVPB SCH (09:43)
[2017-07-04] MEDS: TOPROL 50 MG PO SCH (09:44)
[2017-07-04] MEDS: PLAVIX 75 MG PO SCH (09:47)
[2017-07-04] MEDS: RANITIDINE HCL 150 MG TABLET (FP) PO SCH (09:48)
[2017-07-04] MEDS: AZITHROMYCIN IVPB 500 MG in DEXTROSE 5%-WATER - 250 ML IVPB SCH (09:48)
[2017-07-04] MEDS ORDERED: CLOPIDOGREL BISULFATE 75 MG TABLET (FP) PO SCH (10:00)
[2017-07-04] MEDS ORDERED: DEXTROSE 5%-NORMAL SALINE 1,000 ML IV SCH (12:15)
[2017-07-04] MEDS ORDERED: diphenhydrAMINE HCL 25 MG CAPSULE (FP) PO SCH (12:15)
[2017-07-04 14:07] LABS: ANISOCYTOSIS 2+; MACROCYTOSIS 0; PLATELET ESTIMATE INCREASED; TARGET CELLS 1+
[2017-07-04] MEDS: ALLOPURINOL 100 MG TABLET (FP) PO SCH (16:56)
[2017-07-04] MEDS: LORATADINE 10 MG TABLET PO SCH (16:56)
--- NOTE | 2017-07-04 18:48 | PN ---
Progress Note, Physician History of Present Illness: The patient is an 82 year old white female, with a significant past medical history of gout and severe systolic CHF, who presents to the emergency department by EMS with nasal congestion and cough for 1 week. Patient states that she has productive cough with yellow sputum. Patient also reports having diarrhea recently. She denies recent fevers, chills, headache or dizziness. She denies recent nausea, vomit, diarrhea or constipation. She denies recent dysuria, frequency, urgency or hematuria. She denies recent chest pain or shortness of breath. Allergies: digoxin, diltiazem Past surgical history: None reported. Social history: Nonsmoker. Denies EtOH use and recreational drug use. Primary Care Physician: Winnie Domínguez Cardiology: Brandin Hamm Medication: Lasiks, Metoprolol AFL RFA 03/10/16 Dr Parrish Colectomy (partial) PCI RCA ISR ARMAAN and LE angiography 09/19/2013 Dr. Mcgee BOTTLE MACHINE OPERATOR/stent right SFA 12/12/2013 Dr. Mcgee uterine fibromas removal Ongoing medical problems Anemia ASHD negative MIBI 2010 CAD 3 V ostial RCA 80-90%, mLAD 50%, D1 80% 2011 celiac artery stenosis colon cancer ARMAAN Ostial RCA 2011 [facility] 3V CAD 06/14/13 PAD s/p BOTTLE MACHINE OPERATOR RSFA August 2012 Dr. Mcgee PAD s/p right mid SFA stent 2011 Paroxysmal A fib not on AC due to thrombocytosis but bleeding 2014 Paroxysmal A fib not on AC due to thrombocytosis but bleeding 2014 polycythemia vera BOTTLE MACHINE OPERATOR right SFA ISR 06/14/13 Dr. Mcgee BOTTLE MACHINE OPERATOR/stent RSF November 2013 Dr. Mcgee right subclavian stenosis with steal phenomenon 2016 shingles s/AF ablation dr. Golden Parrish 2015 ECHO 2016 SUMMARY 1. Normal left ventricular size with moderate reduced systolic function; ejection fraction 41%. 2. Moderate global hypokinesis with flattening of septum, due to right ventricle pressure overload. 3. Severe left atrial enlargement. 4. Aortic valve mildly thickened. 5. Moderate mitral valve regurgitation. 6. Severe tricuspid valve regurgitation with right ventricle systolic pressure of 65 mmHg, compatible with severe pulmonary hypertension. - Current Medication List Current Medications: Active Medications Allopurinol (Zyloprim -) 100 mg PO DAILY COUNTS INCLUDE 234 BEDS AT THE [facility] Last Admin: 07/04/17 16:56 Dose: 100 mg Bismuth Subsalicylate (Pepto-Bismol -) 524 mg PO BID PRN PRN Reason: DIARRHEA Furosemide (Lasix Injection -) 40 mg IVPUSH DAILY COUNTS INCLUDE 234 BEDS AT THE [facility] Last Admin: 07/03/17 09:13 Dose: 40 mg CEFTRIAXONE 1 G/50 ML PREMIX (Ceftriaxone 1 Gm-D5w Bag) 50 mls @ 200 mls/hr IVPB DAILY COUNTS INCLUDE 234 BEDS AT THE [facility] Last Admin: 07/04/17 09:43 Dose: 200 mls/hr Azithromycin 500 mg/ Dextrose 250 mls @ 250 mls/hr IVPB DAILY COUNTS INCLUDE 234 BEDS AT THE [facility] Last Admin: 07/04/17 09:48 Dose: 250 mls/hr Dextrose/Sodium Chloride (D5-Ns -) 1,000 mls @ 42 mls/hr IV ASDIR COUNTS INCLUDE 234 BEDS AT THE [facility] Last Admin: 07/04/17 16:57 Dose: 42 mls/hr Lactobacillus Acidophilus (Bacid -) 1 tab PO DAILY COUNTS INCLUDE 234 BEDS AT THE [facility] Last Admin: 07/04/17 09:42 Dose: 1 tab Loratadine (Claritin -) 10 mg PO DAILY COUNTS INCLUDE 234 BEDS AT THE [facility] Last Admin: 07/04/17 16:56 Dose: 10 mg Plavix 75 Mg Tablet (- Patient Own Med) 1 each PO DAILY COUNTS INCLUDE 234 BEDS AT THE [facility] Last Admin: 07/04/17 09:47 Dose: 1 each Pt's Own Med (Non- Formulary) Jakafi 10mg 1 each PO DAILY COUNTS INCLUDE 234 BEDS AT THE [facility] Non-Formulary Medication (Non-Formulary Med) 1 each PO BID COUNTS INCLUDE 234 BEDS AT THE [facility] Ranitidine HCl (Zantac -) 150 mg PO DAILY COUNTS INCLUDE 234 BEDS AT THE [facility] Last Admin: 07/04/17 09:48 Dose: 150 mg - Objective Vital Signs: Vital Signs Temperature 97.3 F L 07/04/17 17:48 Pulse Rate 80 07/04/17 17:48 Respiratory Rate 20 07/04/17 17:48 Blood Pressure 139/63 07/04/17 17:48 O2 Sat by Pulse Oximetry (%) 96 07/04/17 09:00 Labs: CBC, BMP 07/04/17 06:00 07/04/17 06:00 INR, PTT INR 1.24 (0.82-1.09) H D 07/02/17 20:17 Problem List - Problems (1) Systolic CHF Assessment/Plan: On metoprolol ER. Problematic using ACEI (or ARB), or spironolactone due to hyperkalemia, renal dysfunction. Hx moderate-severely reduced LVEF (f/u ECHO). Consider hydralaziine + isordil. diuretics prn. No JVD; no acute pathology on CXR. F/u BUN/Cr, Is and Os, daily weight, electrolytes. Code(s): I50.20 - UNSPECIFIED SYSTOLIC (CONGESTIVE) HEART FAILURE (2) Bronchitis Code(s): J40 - BRONCHITIS, NOT SPECIFIED ACUTE OR CHRONIC (3) Polycythemia rubra vera Code(s): D45 - POLYCYTHEMIA VERA (4) Leukocytosis Code(s): D72.829 - ELEVATED WHITE BLOOD CELL COUNT, UNSPECIFIED Qualifiers: Leukocytosis type: other Qualified Code(s): D72.828 - Other elevated white blood cell count (5) Atrial fibrillation and flutter Assessment/Plan: on metoprolol. Problematic using anticoagulants due to thrombocytosis, bleed. Code(s): I48.91 - UNSPECIFIED ATRIAL FIBRILLATION; I48.92 - UNSPECIFIED ATRIAL FLUTTER (6) Hyperlipidemia Code(s): E78.5 - HYPERLIPIDEMIA, UNSPECIFIED (7) GERD (gastroesophageal reflux disease) Code(s): K21.9 - GASTRO-ESOPHAGEAL REFLUX DISEASE WITHOUT ESOPHAGITIS (8) HTN (hypertension) Assessment/Plan: on metoprolol Code(s): I10 - ESSENTIAL (PRIMARY) HYPERTENSION (9) History of colon cancer Code(s): Z85.038 - PERSONAL HISTORY OF MALIGNANT NEOPLASM OF LARGE INTESTINE (10) Hyperkalemia Code(s): E87.5 - HYPERKALEMIA (11) Mitral regurgitation Code(s): I34.0 - NONRHEUMATIC MITRAL (VALVE) INSUFFICIENCY (13) Sepsis Assessment/Plan: on antibiotics. Code(s): A41.9 - SEPSIS, UNSPECIFIED ORGANISM
[2017-07-04] MEDS: JAKAFI 10 MG PO SCH (19:03)
[2017-07-04] MEDS ORDERED: NON-FORMULARY MED PO SCH (22:00)
[2017-07-04] MEDS: NON-FORMULARY MED PO SCH (22:01)
--- NOTE | 2017-07-04 23:41 | PN ---
Progress Note, Physician Chief Complaint: cough, weakness, diarrhea History of Present Illness: patient admitted for cough and dyspnea associated with weakness. - Current Medication List Current Medications: Active Medications Allopurinol (Zyloprim -) 100 mg PO DAILY [facility] Last Admin: 07/04/17 16:56 Dose: 100 mg Bismuth Subsalicylate (Pepto-Bismol -) 524 mg PO BID PRN PRN Reason: DIARRHEA Furosemide (Lasix Injection -) 40 mg IVPUSH DAILY [facility] Last Admin: 07/03/17 09:13 Dose: 40 mg CEFTRIAXONE 1 G/50 ML PREMIX (Ceftriaxone 1 Gm-D5w Bag) 50 mls @ 200 mls/hr IVPB DAILY [facility] Last Admin: 07/04/17 09:43 Dose: 200 mls/hr Azithromycin 500 mg/ Dextrose 250 mls @ 250 mls/hr IVPB DAILY [facility] Last Admin: 07/04/17 09:48 Dose: 250 mls/hr Lactobacillus Acidophilus (Bacid -) 1 tab PO DAILY [facility] Last Admin: 07/04/17 09:42 Dose: 1 tab Loratadine (Claritin -) 10 mg PO DAILY [facility] Last Admin: 07/04/17 16:56 Dose: 10 mg Plavix 75 Mg Tablet (- Patient Own Med) 1 each PO DAILY [facility] Last Admin: 07/04/17 09:47 Dose: 1 each Pt's Own Med (Non- Formulary) Jakafi 10mg 1 each PO DAILY [facility] Last Admin: 07/04/17 19:03 Dose: 1 each Non-Formulary Medication (Non-Formulary Med) 1 each PO BID [facility] Last Admin: 07/04/17 22:01 Dose: 1 each Ranitidine HCl (Zantac -) 150 mg PO DAILY [facility] Last Admin: 07/04/17 09:48 Dose: 150 mg - Objective Vital Signs: Vital Signs Temperature 97.8 F 07/04/17 21:58 Pulse Rate 83 07/04/17 21:58 Respiratory Rate 20 07/04/17 21:58 Blood Pressure 140/72 07/04/17 21:58 O2 Sat by Pulse Oximetry (%) 96 07/04/17 20:03 Constitutional: Yes: No Distress, Calm Eyes: Yes: Conjunctiva Clear, EOM Intact HENT: Yes: Atraumatic, Normocephalic Neck: Yes: Supple, Trachea Midline Cardiovascular: Yes: Pulse Irregular Respiratory: Yes: Regular, CTA Bilaterally Gastrointestinal: Yes: Normal Bowel Sounds, Soft Musculoskeletal: Yes: WNL Edema: No Peripheral Pulses WNL: Yes Neurological: Yes: Alert, Oriented Psychiatric: Yes: Alert, Oriented Labs: CBC, BMP 07/04/17 06:00 07/04/17 06:00 INR, PTT INR 1.24 (0.82-1.09) H D 07/02/17 20:17 Problem List - Problems (1) Bronchitis Assessment/Plan: continue Ceftriaxone and Zithromax Code(s): J40 - BRONCHITIS, NOT SPECIFIED ACUTE OR CHRONIC (2) Atrial fibrillation and flutter Assessment/Plan: Toprol 50 mg po bid Plavix daily Code(s): I48.91 - UNSPECIFIED ATRIAL FIBRILLATION; I48.92 - UNSPECIFIED ATRIAL FLUTTER (3) CHF (congestive heart failure) Assessment/Plan: Lasix on hold due to elevated BUN and creatinine Code(s): I50.9 - HEART FAILURE, UNSPECIFIED (4) Acute kidney failure Assessment/Plan: on top of chronic kidney failure continue iv hydration Code(s): N17.9 - ACUTE KIDNEY FAILURE, UNSPECIFIED (5) Polycythemia rubra vera Assessment/Plan: H/H and WBC in the usual range Code(s): D45 - POLYCYTHEMIA VERA
[2017-07-05 08:12] LABS: HEMOGLOBIN 9.1 GM/dL (10.7-15.3); MCH 28.8 pg (25.7-33.7); MCHC 30.4 g/dl (32.0-36.0); MEAN CELL VOLUME 94.7 fl (80-96); MEAN PLT VOLUME 8.5 fl (7.5-11.1); PLATELET COUNT 718 K/MM3 (134-434); RBC 3.16 M/mm3 (3.60-5.2); RDW 20.8 % (11.6-15.6)
[2017-07-05 08:39] LABS: WHITE BLOOD COUNT 47.2 K/mm3 (4.0-10.0)
[2017-07-05 09:07] LABS: CHLORIDE 106 mmol/L (98-107); POTASSIUM 4.6 mmol/L (3.5-5.1); SODIUM 137 mmol/L (136-145)
[2017-07-05 09:14] LABS: ALBUMIN 3.2 g/dl (3.4-5.0); ALK PHOS 298 U/L (45-117); ANION GAP 12 (8-16); BILIRUBIN,TOTAL 0.8 mg/dL (0.2-1.0); BLOOD UREA NITROGEN 43 mg/dL (7-18); CALCIUM 8.3 mg/dL (8.5-10.1); CO2 19 mmol/L (21-32); CREATININE 1.6 mg/dL (0.55-1.02); GLUCOSE,RANDOM 75 mg/dL (74-106); SGOT/AST 25 U/L (15-37); SGPT/ALT 28 U/L (12-78); TOT PROT 6.3 g/dl (6.4-8.2)
[2017-07-05] MEDS: RANITIDINE HCL 150 MG TABLET (FP) PO SCH (10:03)
[2017-07-05] MEDS: LACTOBACILLUS ACIDOPHILUS 1 EACH TAB (FP) PO SCH (10:03)
[2017-07-05] MEDS: LORATADINE 10 MG TABLET PO SCH (10:03)
[2017-07-05] MEDS: ALLOPURINOL 100 MG TABLET (FP) PO SCH (10:03)
[2017-07-05] MEDS: JAKAFI 10 MG PO SCH ×3 (10:04→22:38)
[2017-07-05] MEDS: PLAVIX 75 MG PO SCH (10:05)
[2017-07-05] MEDS: NON-FORMULARY MED PO SCH ×3 (10:05→22:37)
--- NOTE | 2017-07-05 10:55 | PN ---
Progress Note, Physician History of Present Illness: The patient is an 82 year old female, with a significant past medical history of gout and CHF, who presents to the emergency department by EMS with nasal congestion and cough for 1 week. Patient states that she has productive cough with yellow sputum. Patient also reports having diarrhea recently. She denies recent fevers, chills, headache or dizziness. She denies recent nausea, vomit, diarrhea or constipation. She denies recent dysuria, frequency, urgency or hematuria. She denies recent chest pain or shortness of breath. Allergies: digoxin, diltiazem Past surgical history: None reported. Social history: Nonsmoker. Denies EtOH use and recreational drug use. Primary Care Physician: Winnie Domínguez Cardiology: Brandin Hamm Medication: Lasiks, Metoprolol PMH AFL RFA 03/10/16 Dr Parrish Colectomy (partial) PCI RCA ISR ARMAAN and LE angiography 09/19/2013 Dr. Mcgee [employer]BACK/stent right SFA 12/12/2013 Dr. Mcgee uterine fibromas removal Ongoing medical problems Anemia ASHD negative MIBI 2010 CAD 3 V ostial RCA 80-90%, mLAD 50%, D1 80% 2011 celiac artery stenosis colon cancer ARMAAN Ostial RCA 2011 [facility] 3V CAD 06/14/13 PAD s/p VENE[employer] JOINTER FEEDBACK RSFA August 2012 Dr. Mcgee PAD s/p right mid SFA stent 2011 Paroxysmal A fib not on AC due to thrombocytosis but bleeding 2014 Paroxysmal A fib not on AC due to thrombocytosis but bleeding 2014 polycythemia vera [employer]BACK right SFA ISR 06/14/13 Dr. Mcgee [employer] FEEDBACK/stent RSF November 2013 Dr. Mcgee right subclavian stenosis with steal phenomenon 2016 shingles s/AF ablation dr. Golden Parrish 2015 ECHO 2016 SUMMARY 1. Normal left ventricular size with moderate reduced systolic function; ejection fraction 41%. 2. Moderate global hypokinesis with flattening of septum, due to right ventricle pressure overload. 3. Severe left atrial enlargement. 4. Aortic valve mildly thickened. 5. Moderate mitral valve regurgitation. 6. Severe tricuspid valve regurgitation with right ventricle systolic pressure of 65 mmHg, compatible with severe pulmonary hypertension. - Current Medication List Current Medications: Active Medications Allopurinol (Zyloprim -) 100 mg PO DAILY [facility] Last Admin: 07/05/17 10:03 Dose: 100 mg Bismuth Subsalicylate (Pepto-Bismol -) 524 mg PO BID PRN PRN Reason: DIARRHEA Furosemide (Lasix Injection -) 40 mg IVPUSH DAILY [facility] Last Admin: 07/03/17 09:13 Dose: 40 mg CEFTRIAXONE 1 G/50 ML PREMIX (Ceftriaxone 1 Gm-D5w Bag) 50 mls @ 200 mls/hr IVPB DAILY [facility] Last Admin: 07/04/17 09:43 Dose: 200 mls/hr Azithromycin 500 mg/ Dextrose 250 mls @ 250 mls/hr IVPB DAILY [facility] Last Admin: 07/04/17 09:48 Dose: 250 mls/hr Lactobacillus Acidophilus (Bacid -) 1 tab PO DAILY [facility] Last Admin: 07/05/17 10:03 Dose: 1 tab Loratadine (Claritin -) 10 mg PO DAILY [facility] Last Admin: 07/05/17 10:03 Dose: 10 mg Plavix 75 Mg Tablet (- Patient Own Med) 1 each PO DAILY [facility] Last Admin: 07/05/17 10:05 Dose: 1 each Pt's Own Med (Non- Formulary) Jakafi 10mg 1 each PO DAILY [facility] Last Admin: 07/05/17 10:04 Dose: 1 each Non-Formulary Medication (Non-Formulary Med) 1 each PO BID [facility] Last Admin: 07/05/17 10:05 Dose: 1 each Ranitidine HCl (Zantac -) 150 mg PO DAILY [facility] Last Admin: 07/05/17 10:03 Dose: 150 mg - Objective Vital Signs: Vital Signs Temperature 97.8 F 07/04/17 21:58 Pulse Rate 83 07/04/17 21:58 Respiratory Rate 20 07/04/17 21:58 Blood Pressure 140/72 07/04/17 21:58 O2 Sat by Pulse Oximetry (%) 96 07/04/17 20:03 Eyes: Yes: WNL, Conjunctiva Clear, EOM Intact HENT: Yes: WNL, Atraumatic, Normocephalic Neck: Yes: WNL, Supple, Trachea Midline Cardiovascular: Yes: WNL, Regular Rate and Rhythm Respiratory: Yes: WNL, Regular, CTA Bilaterally Gastrointestinal: Yes: WNL, Normal Bowel Sounds Genitourinary: Yes: WNL Musculoskeletal: Yes: WNL Extremities: Yes: WNL Edema: No Integumentary: Yes: WNL Neurological: Yes: WNL, Alert, Oriented ...Motor Strength: WNL Psychiatric: Yes: WNL Labs: CBC, BMP 07/05/17 06:00 07/05/17 06:00 INR, PTT INR 1.24 (0.82-1.09) H D 07/02/17 20:17 Problem List - Problems (1) Fever Code(s): R50.9 - FEVER, UNSPECIFIED Qualifiers: Fever type: due to other condition Qualified Code(s): R50.81 - Fever presenting with conditions classified elsewhere (2) Hyponatremia Code(s): E87.1 - HYPO-OSMOLALITY AND HYPONATREMIA (3) Pneumonia Code(s): J18.9 - PNEUMONIA, UNSPECIFIED ORGANISM Qualifiers: Pneumonia type: due to unspecified organism Laterality: right Lung location: lower lobe of lung Qualified Code(s): J18.1 - Lobar pneumonia, unspecified organism (4) Polycythemia rubra vera Code(s): D45 - POLYCYTHEMIA VERA (5) Leukocytosis Code(s): D72.829 - ELEVATED WHITE BLOOD CELL COUNT, UNSPECIFIED Qualifiers: Leukocytosis type: other Qualified Code(s): D72.828 - Other elevated white blood cell count (6) Atrial fibrillation and flutter Code(s): I48.91 - UNSPECIFIED ATRIAL FIBRILLATION; I48.92 - UNSPECIFIED ATRIAL FLUTTER (7) Atypical chest pain Code(s): R07.89 - OTHER CHEST PAIN (8) Hyperlipidemia Code(s): E78.5 - HYPERLIPIDEMIA, UNSPECIFIED (9) Myelofibrosis Code(s): D75.81 - MYELOFIBROSIS (10) Palpitations Code(s): R00.2 - PALPITATIONS (11) Traumatic ecchymosis of left lower leg Code(s): S80.12XA - CONTUSION OF LEFT LOWER LEG, INITIAL ENCOUNTER Qualifiers: Encounter type: initial encounter Qualified Code(s): S80.12XA - Contusion of left lower leg, initial encounter (12) Anemia Code(s): D64.9 - ANEMIA, UNSPECIFIED (13) Atrial fib/flutter, transient Code(s): [id number] - (14) CHF (congestive heart failure) Code(s): I50.9 - HEART FAILURE, UNSPECIFIED (15) COPD (chronic obstructive pulmonary disease) Code(s): J44.9 - CHRONIC OBSTRUCTIVE PULMONARY DISEASE, UNSPECIFIED (16) GERD (gastroesophageal reflux disease) Code(s): K21.9 - GASTRO-ESOPHAGEAL REFLUX DISEASE WITHOUT ESOPHAGITIS (17) HTN (hypertension) Code(s): I10 - ESSENTIAL (PRIMARY) HYPERTENSION (18) History of colon cancer Code(s): Z85.038 - PERSONAL HISTORY OF MALIGNANT NEOPLASM OF LARGE INTESTINE (19) History of hypertension Code(s): Z86.79 - PERSONAL HISTORY OF OTHER DISEASES OF THE CIRCULATORY SYSTEM (20) History of uterine cancer Code(s): Z85.42 - PERSONAL HISTORY OF MALIGNANT NEOPLASM OF OTH PRT UTERUS (21) Hyperkalemia Code(s): E87.5 - HYPERKALEMIA (22) Mitral regurgitation Code(s): I34.0 - NONRHEUMATIC MITRAL (VALVE) INSUFFICIENCY Assessment/Plan - Problems (1) Systolic CHF Assessment/Plan: On metoprolol ER. Problematic using ACEI (or ARB), or spironolactone due to hyperkalemia, renal dysfunction. Hx moderate-severely reduced LVEF (f/u ECHO). Consider hydralaziine + isordil. diuretics prn. No JVD; no acute pathology on CXR. F/u BUN/Cr, Is and Os, daily weight, electrolytes. Code(s): I50.20 - UNSPECIFIED SYSTOLIC (CONGESTIVE) HEART FAILURE (2) Bronchitis Code(s): J40 - BRONCHITIS, NOT SPECIFIED ACUTE OR CHRONIC (3) Polycythemia rubra vera Code(s): D45 - POLYCYTHEMIA VERA (4) Leukocytosis Code(s): D72.829 - ELEVATED WHITE BLOOD CELL COUNT, UNSPECIFIED Qualifiers: Leukocytosis type: other Qualified Code(s): D72.828 - Other elevated white blood cell count (5) Atrial fibrillation and flutter Assessment/Plan: on metoprolol. Problematic using anticoagulants due to thrombocytosis, bleed. Code(s): I48.91 - UNSPECIFIED ATRIAL FIBRILLATION; I48.92 - UNSPECIFIED ATRIAL FLUTTER (6) Hyperlipidemia Code(s): E78.5 - HYPERLIPIDEMIA, UNSPECIFIED (7) GERD (gastroesophageal reflux disease) Code(s): K21.9 - GASTRO-ESOPHAGEAL REFLUX DISEASE WITHOUT ESOPHAGITIS (8) HTN (hypertension) Assessment/Plan: on metoprolol Code(s): I10 - ESSENTIAL (PRIMARY) HYPERTENSION (9) History of colon cancer Code(s): Z85.038 - PERSONAL HISTORY OF MALIGNANT NEOPLASM OF LARGE INTESTINE (10) Hyperkalemia Code(s): E87.5 - HYPERKALEMIA (11) Mitral regurgitation Code(s): I34.0 - NONRHEUMATIC MITRAL (VALVE) INSUFFICIENCY (13) Sepsis Assessment/Plan: on antibiotics. Code(s): A41.9 - SEPSIS, UNSPECIFIED ORGANISM
[2017-07-05] MEDS: CEFTRIAXONE 1 G/50 ML PREMIX 50 ML IVPB SCH (14:02)
[2017-07-05] MEDS: FUROSEMIDE 40 MG/4 ML INJECTABLE VIAL IVPUSH SCH (14:02)
[2017-07-05] MEDS: AZITHROMYCIN IVPB 500 MG in DEXTROSE 5%-WATER - 250 ML IVPB SCH (14:03)
[2017-07-05 14:56] LABS: ANISOCYTOSIS 3+; MACROCYTOSIS 0; PLATELET ESTIMATE INCREASED; TARGET CELLS 1+
--- NOTE | 2017-07-05 20:23 | PN ---
Progress Note, Physician Chief Complaint: cough, weakness, diarrhea History of Present Illness: patient admitted for cough and dyspnea associated with weakness, and while started on antibiotics the patient developed diarrhea. Today the patient is still complaining of cough which is interfering with her sleep and says that she had normal bowel movements - Current Medication List Current Medications: Active Medications Allopurinol (Zyloprim -) 100 mg PO DAILY [facility] Last Admin: 07/05/17 10:03 Dose: 100 mg Amoxicillin/Clavulanate Potassium (Augmentin - 500mg Tablet) 1 tab PO BID@0800, 1730 [facility] Bismuth Subsalicylate (Pepto-Bismol -) 524 mg PO BID PRN PRN Reason: DIARRHEA Furosemide (Lasix Injection -) 40 mg IVPUSH DAILY [facility] Last Admin: 07/05/17 14:02 Dose: Not Given CEFTRIAXONE 1 G/50 ML PREMIX (Ceftriaxone 1 Gm-D5w Bag) 50 mls @ 200 mls/hr IVPB DAILY [facility] Last Admin: 07/05/17 14:02 Dose: Not Given Azithromycin 500 mg/ Dextrose 250 mls @ 250 mls/hr IVPB DAILY [facility] Last Admin: 07/05/17 14:03 Dose: Not Given Lactobacillus Acidophilus (Bacid -) 1 tab PO DAILY [facility] Last Admin: 07/05/17 10:03 Dose: 1 tab Loratadine (Claritin -) 10 mg PO DAILY [facility] Last Admin: 07/05/17 10:03 Dose: 10 mg Plavix 75 Mg Tablet (- Patient Own Med) 1 each PO DAILY [facility] Last Admin: 07/05/17 10:05 Dose: 1 each Pt's Own Med (Non- Formulary) Jakafi 10mg 1 each PO DAILY [facility] Last Admin: 07/05/17 10:04 Dose: 1 each Non-Formulary Medication (Non-Formulary Med) 1 each PO BID [facility] Last Admin: 07/05/17 10:05 Dose: 1 each Ranitidine HCl (Zantac -) 150 mg PO DAILY [facility] Last Admin: 07/05/17 10:03 Dose: 150 mg - Objective Vital Signs: Vital Signs Temperature 97.4 F L 07/05/17 14:46 Pulse Rate 73 07/05/17 14:46 Respiratory Rate 18 07/05/17 14:46 Blood Pressure 122/53 07/05/17 14:46 O2 Sat by Pulse Oximetry (%) 97 07/05/17 09:00 Constitutional: Yes: Calm, Other (moderate cough) Eyes: Yes: Conjunctiva Clear, EOM Intact HENT: Yes: Atraumatic, Normocephalic Neck: Yes: Supple, Trachea Midline Cardiovascular: Yes: Regular Rate and Rhythm, S1, S2 Respiratory: Yes: Regular, CTA Bilaterally Gastrointestinal: Yes: Normal Bowel Sounds, Soft, Abdomen, Obese. No: Hepatomegaly, Splenomegaly Genitourinary: Yes: Incontinence Breast(s): Yes: WNL Edema: No Neurological: Yes: Alert, Oriented Psychiatric: Yes: Alert, Oriented Labs: CBC, BMP 07/05/17 06:00 07/05/17 06:00 INR, PTT INR 1.24 (0.82-1.09) H D 07/02/17 20:17 Problem List - Problems (1) Bronchitis Assessment/Plan: stop Ceftriaxone and Zithromax start Augmentin 500 mg po bid Code(s): J40 - BRONCHITIS, NOT SPECIFIED ACUTE OR CHRONIC (2) Atrial fibrillation and flutter Assessment/Plan: Toprol 50 mg po bid Plavix Code(s): I48.91 - UNSPECIFIED ATRIAL FIBRILLATION; I48.92 - UNSPECIFIED ATRIAL FLUTTER (3) CHF (congestive heart failure) Assessment/Plan: Lasix po , monitor BUN and creatinine Code(s): I50.9 - HEART FAILURE, UNSPECIFIED (4) Acute kidney failure Assessment/Plan: on top of chronic kidney failure stopped IV hydration continue holding the Lasix Code(s): N17.9 - ACUTE KIDNEY FAILURE, UNSPECIFIED (5) Polycythemia rubra vera Assessment/Plan: H/H and WBC in the usual range Code(s): D45 - POLYCYTHEMIA VERA
[2017-07-05] MEDS: AMOX TR/POT CLAV 500MG/125MG TABLETS (FP) PO SCH (22:29)
[2017-07-06] MEDS: guaiFENesin/CODEINE 10 ML UNIT-DOSE CUPS PO PRN ×2 (02:03→15:55)
[2017-07-06] MEDS ORDERED: PT OWN MED DRAWER 7, Y5N ONE ×3 (08:47→22:12)
[2017-07-06] MEDS: AMOX TR/POT CLAV 500MG/125MG TABLETS (FP) PO SCH ×2 (09:05→16:32)
[2017-07-06] MEDS: ALLOPURINOL 100 MG TABLET (FP) PO SCH (09:06)
[2017-07-06] MEDS: LORATADINE 10 MG TABLET PO SCH (09:06)
[2017-07-06] MEDS: LACTOBACILLUS ACIDOPHILUS 1 EACH TAB (FP) PO SCH (09:06)
[2017-07-06] MEDS: RANITIDINE HCL 150 MG TABLET (FP) PO SCH (09:06)
[2017-07-06] MEDS: NON-FORMULARY MED PO SCH ×2 (09:07→22:22)
[2017-07-06] MEDS: PLAVIX 75 MG PO SCH (09:07)
[2017-07-06] MEDS: JAKAFI 10 MG PO SCH ×2 (09:08→22:21)
--- NOTE | 2017-07-06 15:25 | PN ---
Progress Note, Physician History of Present Illness: The patient is an 82 year old white female, with a significant past medical history of gout and severe systolic CHF, who presents to the emergency department by EMS with nasal congestion and cough for 1 week. Patient states that she has productive cough with yellow sputum. Patient also reports having diarrhea recently. She denies recent fevers, chills, headache or dizziness. She denies recent nausea, vomit, diarrhea or constipation. She denies recent dysuria, frequency, urgency or hematuria. She denies recent chest pain or shortness of breath. Allergies: digoxin, diltiazem Past surgical history: None reported. Social history: Nonsmoker. Denies EtOH use and recreational drug use. Primary Care Physician: Winnie Domínguez Cardiology: Brandin Hamm Medication: Lasiks, Metoprolol AFL RFA 03/10/16 Dr Parrish Colectomy (partial) PCI RCA ISR ARMAAN and LE angiography 09/19/2013 Dr. 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 Mcgee PAD s/p right mid SFA stent 2011 Paroxysmal A fib not on AC due to thrombocytosis but bleeding 2014 Paroxysmal A fib not on AC due to thrombocytosis but bleeding 2014 polycythemia vera [employer]ER right SFA ISR 06/14/13 Dr. Mcgee [employer]ING ASSEMBLER/stent RSF November 2013 Dr. Mcgee right subclavian stenosis with steal phenomenon 2016 shingles s/AF ablation dr. Golden Parrish 2015 ECHO 2016 SUMMARY 1. Normal left ventricular size with moderate reduced systolic function; ejection fraction 41%. 2. Moderate global hypokinesis with flattening of septum, due to right ventricle pressure overload. 3. Severe left atrial enlargement. 4. Aortic valve mildly thickened. 5. Moderate mitral valve regurgitation. 6. Severe tricuspid valve regurgitation with right ventricle systolic pressure of 65 mmHg, compatible with severe pulmonary hypertension. - Current Medication List Current Medications: Active Medications Allopurinol (Zyloprim -) 100 mg PO DAILY [facility] Last Admin: 07/06/17 09:06 Dose: 100 mg Amoxicillin/Clavulanate Potassium (Augmentin - 500mg Tablet) 1 tab PO BID@0800, 1730 [facility] Last Admin: 07/06/17 09:05 Dose: 1 tab Bismuth Subsalicylate (Pepto-Bismol -) 524 mg PO BID PRN PRN Reason: DIARRHEA Guaifenesin/Codeine Phosphate (Robitussin Ac -) 10 ml PO Q8H PRN PRN Reason: COUGH Last Admin: 07/06/17 02:03 Dose: 10 ml Lactobacillus Acidophilus (Bacid -) 1 tab PO DAILY [facility] Last Admin: 07/06/17 09:06 Dose: 1 tab Loratadine (Claritin -) 10 mg PO DAILY [facility] Last Admin: 07/06/17 09:06 Dose: 10 mg Plavix 75 Mg Tablet (- Patient Own Med) 1 each PO DAILY [facility] Last Admin: 07/06/17 09:07 Dose: 1 each Pt's Own Med (Non- Formulary) Jakafi 10mg 1 each PO DAILY [facility] Last Admin: 07/06/17 09:08 Dose: 1 each Non-Formulary Medication (Non-Formulary Med) 1 each PO BID [facility] Last Admin: 07/06/17 09:07 Dose: 1 each Patient's Own Medication (Non- Formulary)Jakafi 10mg 1 each PO HS [facility] Last Admin: 07/05/17 22:38 Dose: Not Given Ranitidine HCl (Zantac -) 150 mg PO DAILY [facility] Last Admin: 07/06/17 09:06 Dose: 150 mg - Objective Vital Signs: Vital Signs Temperature 97.2 F L 07/06/17 15:12 Pulse Rate 71 07/06/17 15:12 Respiratory Rate 20 07/06/17 15:12 Blood Pressure 129/63 07/06/17 15:12 O2 Sat by Pulse Oximetry (%) 96 07/06/17 09:00 Labs: CBC, BMP 07/05/17 06:00 07/05/17 06:00 INR, PTT INR 1.24 (0.82-1.09) H D 07/02/17 20:17 Problem List - Problems (1) Systolic CHF Code(s): I50.20 - UNSPECIFIED SYSTOLIC (CONGESTIVE) HEART FAILURE (2) Bronchitis Code(s): J40 - BRONCHITIS, NOT SPECIFIED ACUTE OR CHRONIC (3) Polycythemia rubra vera Code(s): D45 - POLYCYTHEMIA VERA (4) Leukocytosis Code(s): D72.829 - ELEVATED WHITE BLOOD CELL COUNT, UNSPECIFIED Qualifiers: Leukocytosis type: other Qualified Code(s): D72.828 - Other elevated white blood cell count (5) Atrial fibrillation and flutter Code(s): I48.91 - UNSPECIFIED ATRIAL FIBRILLATION; I48.92 - UNSPECIFIED ATRIAL FLUTTER (6) Hyperlipidemia Code(s): E78.5 - HYPERLIPIDEMIA, UNSPECIFIED (7) GERD (gastroesophageal reflux disease) Code(s): K21.9 - GASTRO-ESOPHAGEAL REFLUX DISEASE WITHOUT ESOPHAGITIS (8) HTN (hypertension) Code(s): I10 - ESSENTIAL (PRIMARY) HYPERTENSION (9) History of colon cancer Code(s): Z85.038 - PERSONAL HISTORY OF MALIGNANT NEOPLASM OF LARGE INTESTINE (10) Hyperkalemia Code(s): E87.5 - HYPERKALEMIA (11) Mitral regurgitation Code(s): I34.0 - NONRHEUMATIC MITRAL (VALVE) INSUFFICIENCY (13) Sepsis Code(s): A41.9 - SEPSIS, UNSPECIFIED ORGANISM
[2017-07-06] MEDS ORDERED: FUROSEMIDE 40 MG TABLET (FP) PO ONE (17:45)
[2017-07-06] MEDS ORDERED: guaiFENesin/CODEINE 10 ML UNIT-DOSE CUPS PO PRN (18:12)
--- NOTE | 2017-07-06 18:22 | PN ---
Progress Note, Physician Chief Complaint: cough, weakness, diarrhea History of Present Illness: 82 yo female patient admitted for cough and dyspnea associated with weakness. In the hospital after the antibiotics were started the patient developed and while started on antibiotics the patient developed diarrhea. Today the patient' s cough improved, and she denies any chest pain, dyspnea or palpitations. - Current Medication List Current Medications: Active Medications Allopurinol (Zyloprim -) 100 mg PO DAILY [facility] Last Admin: 07/06/17 09:06 Dose: 100 mg Amoxicillin/Clavulanate Potassium (Augmentin - 500mg Tablet) 1 tab PO BID@0800, 1730 [facility] Last Admin: 07/06/17 16:32 Dose: 1 tab Fluticasone Propionate (Flonase -) 1 spray NS BID [facility] Furosemide (Lasix -) 40 mg PO DAILY [facility] Guaifenesin/Codeine Phosphate (Robitussin Ac -) 5 ml PO Q8H PRN PRN Reason: COUGH Loratadine (Claritin -) 10 mg PO DAILY [facility] Last Admin: 07/06/17 09:06 Dose: 10 mg Plavix 75 Mg Tablet (- Patient Own Med) 1 each PO DAILY [facility] Last Admin: 07/06/17 09:07 Dose: 1 each Pt's Own Med (Non- Formulary) Jakafi 10mg 1 each PO DAILY [facility] Last Admin: 07/06/17 09:08 Dose: 1 each Non-Formulary Medication (Non-Formulary Med) 1 each PO BID [facility] Last Admin: 07/06/17 09:07 Dose: 1 each Patient's Own Medication (Non- Formulary)Jakafi 10mg 1 each PO HS [facility] Last Admin: 07/05/17 22:38 Dose: Not Given Ranitidine HCl (Zantac -) 150 mg PO DAILY [facility] Last Admin: 07/06/17 09:06 Dose: 150 mg - Objective Vital Signs: Vital Signs Temperature 97.2 F L 07/06/17 15:12 Pulse Rate 71 07/06/17 15:12 Respiratory Rate 20 07/06/17 15:12 Blood Pressure 129/63 07/06/17 15:12 O2 Sat by Pulse Oximetry (%) 96 07/06/17 09:00 Constitutional: Yes: No Distress, Calm Eyes: Yes: Conjunctiva Clear, EOM Intact HENT: Yes: Atraumatic, Normocephalic Neck: Yes: Supple, Trachea Midline Cardiovascular: Yes: Pulse Irregular Respiratory: Yes: Regular, CTA Bilaterally, Cough (diminished). No: Rales, Rhonchi, SOB Gastrointestinal: Yes: Normal Bowel Sounds, Soft, Abdomen, Obese. No: Hepatomegaly, Splenomegaly Extremities: No: Calf Tenderness Edema: No Peripheral Pulses WNL: Yes Neurological: Yes: Alert, Oriented Psychiatric: Yes: Alert, Oriented Labs: CBC, BMP 07/05/17 06:00 07/05/17 06:00 INR, PTT INR 1.24 (0.82-1.09) H D 07/02/17 20:17 Problem List - Problems (1) Bronchitis Assessment/Plan: continue Augmentin 500 mg po bid D/C planning in am Code(s): J40 - BRONCHITIS, NOT SPECIFIED ACUTE OR CHRONIC (2) Atrial fibrillation and flutter Assessment/Plan: Toprol 50 mg po bid continue Plavix Code(s): I48.91 - UNSPECIFIED ATRIAL FIBRILLATION; I48.92 - UNSPECIFIED ATRIAL FLUTTER (3) CHF (congestive heart failure) Assessment/Plan: restart Lasix po , monitor BUN and creatinine Code(s): I50.9 - HEART FAILURE, UNSPECIFIED (4) Acute kidney failure Assessment/Plan: on top of chronic kidney failure improved very much with iv hydration and while holding the Lasix Code(s): N17.9 - ACUTE KIDNEY FAILURE, UNSPECIFIED (5) Polycythemia rubra vera Assessment/Plan: H/H and WBC in the usual range Code(s): D45 - POLYCYTHEMIA VERA
[2017-07-06] MEDS: FLUTICASONE PROP 0.05% 16 GM NASAL SPRAY NS SCH (22:22)
[2017-07-07] MEDS: LORATADINE 10 MG TABLET PO SCH (09:02)
[2017-07-07] MEDS: FLUTICASONE PROP 0.05% 16 GM NASAL SPRAY NS SCH (09:02)
[2017-07-07] MEDS: AMOX TR/POT CLAV 500MG/125MG TABLETS (FP) PO SCH (09:02)
[2017-07-07] MEDS: RANITIDINE HCL 150 MG TABLET (FP) PO SCH (09:02)
[2017-07-07] MEDS: ALLOPURINOL 100 MG TABLET (FP) PO SCH (09:02)
[2017-07-07] MEDS: JAKAFI 10 MG PO SCH (09:04)
[2017-07-07] MEDS: NON-FORMULARY MED PO SCH (09:06)
[2017-07-07] MEDS: PLAVIX 75 MG PO SCH (09:09)
[2017-07-07] MEDS ORDERED: FUROSEMIDE 40 MG TABLET (FP) PO SCH (10:00)
--- NOTE | 2017-07-07 14:05 | DS ---
Physical Examination Vital Signs: Vital Signs Temperature 98 F 07/07/17 08:53 Pulse Rate 82 07/07/17 08:53 Respiratory Rate 18 07/07/17 08:53 Blood Pressure 125/58 07/07/17 08:53 O2 Sat by Pulse Oximetry (%) 97 07/06/17 21:00 Constitutional: Yes: No Distress, Calm Eyes: Yes: Conjunctiva Clear, EOM Intact HENT: Yes: Atraumatic, Normocephalic Neck: Yes: Supple, Trachea Midline Cardiovascular: Yes: Tachycardia Respiratory: Yes: Regular, CTA Bilaterally Gastrointestinal: Yes: Normal Bowel Sounds, Soft, Abdomen, Obese. No: Hepatomegaly, Splenomegaly ...Rectal Exam: Yes: Deferred Breast(s): Yes: WNL Extremities: No: Calf Tenderness Edema: No Integumentary: Yes: WNL Labs: CBC, BMP 07/05/17 06:00 07/05/17 06:00 Discharge Summary Reason For Visit: POLYCYTHEMIA VERA, FEVER LEUKOCYTOSIS Current Active Problems Acute kidney failure (Acute) Bronchitis (Acute) Diarrhea (Acute) Fever (Acute) Hyponatremia (Acute) Polycythemia rubra vera (Acute) Sepsis (Acute) Systolic CHF (Acute) Leukocytosis (Chronic) Hospital Course: 82 yo female admitted for cough and weakness, received IV antibiotics followed by po Augmentin. The patient was dehydrated with pre renal azotemia. her Lasix was placed on hold and patient received IV fluids. Her kidney function improved top baseline. The patient is ready to be discharged with VNS at home. She will follow up with me or the. Restart Lasix 40 mg qod alternating with 20 mg po qod. Follow up Edger Machine Helper or myself in 1 week. Condition: Stable - Instructions - Home Medications Comprehensive Discharge Medication List: Ambulatory Orders B-12 06/01/17 Claritin 1 PO DAILY 06/01/17 Feosol 325 mg PO DAILY 06/01/17 Folic Acid 1 mg PO DAILY 06/01/17 Lasix 40 mg PO DAILY 06/01/17 Protonix 40 mg PO QID 06/01/17 Allopurinol [Zyloprim -] 100 mg PO DAILY 07/03/17 Multivitamin [Daily Multiple Vitamin] 1 each PO DAILY 07/03/17 Ranitidine HCl [Zantac 75] 75 mg PO ACBK 07/03/17 Ruxolitinib Phosphate [Jakafi] 10 mg PO BID 07/03/17 Allopurinol [Zyloprim -] 100 mg PO DAILY tablet 07/06/17 Amox-Tr/K Cl [Augmentin 500-125mg Tablet -] 1 tab PO BID@0800,1730 #14 tablet Guaifenesin AC [Robitussin AC -] 10 ml PO Q8H PRN #120 ud MDD 30 07/06/17 Lactobacillus Acidophilus [Bacid -] 1 tab PO BID 7 Days #14 tab 07/06/17 Patient's Own Medication [Patient's Own Med (Nf) -] 1 each PO DAILY med Patient's Own Medication [Patient's Own Med (Nf) -] 1 each PO HS med 07/06/17
[2017-07-07 14:34] VITALS: BP 124/61; PULSE 72; TEMP 97.9
[2017-07-07] MEDS ORDERED: CLOPIDOGREL BISULFATE 75 MG TABLET (FP) PO SCH (20:00)
[2017-07-07] MEDS ORDERED: METOPROLOL SUCCINATE 50 MG TAB.SR.24H (FP) PO SCH (22:00)
== END 2017-07-07 16:18 | disposition home health service (06) | DRG 871 ==
LOC: JER 19:06 → JERBED 23:08 → J7W 07-03 01:32
PROVIDERS: ADMIT Internal Medicine; ATTEND Internal Medicine
DX: A41.9 Sepsis, unspecified organism (principal); I50.21 Acute systolic (congestive) heart failure; I48.92 Unspecified atrial flutter; N17.9 Acute kidney failure, unspecified; E87.1 Hypo-osmolality and hyponatremia; J40 Bronchitis, not specified as acute or chronic; D45 Polycythemia vera; I25.10 Atherosclerotic heart disease of native coronary artery without angina pectoris; J44.9 Chronic obstructive pulmonary disease, unspecified; K21.9 Gastro-esophageal reflux disease without esophagitis; E86.0 Dehydration; D72.828 Other elevated white blood cell count; E78.5 Hyperlipidemia, unspecified; I11.0 Hypertensive heart disease with heart failure; I25.2 Old myocardial infarction; E53.8 Deficiency of other specified B group vitamins; F41.8 Other specified anxiety disorders; R19.7 Diarrhea, unspecified; M10.9 Gout, unspecified; I48.91 Unspecified atrial fibrillation; I08.1 Rheumatic disorders of both mitral and tricuspid valves; D64.9 Anemia, unspecified; Z85.038 Personal history of other malignant neoplasm of large intestine; Z85.42 Personal history of malignant neoplasm of other parts of uterus
CPT/HCPCS: 36415; 71045-TC; 80053; 81003; 81015; 82550; 82803; 83605; 83880; 84484; 85025; 85610; 85730; 87040; 87086; 87804; 93005; 93010; 93306-TC; 97116-GP; 97161-GP; 99282-25

== ENCOUNTER 2017-10-13 21:40 | Observation (INO) | payer OTHER, MEDICARE ==
--- NOTE | 2017-10-13 21:47 | PDOC ---
History of Present Illness - History of Present Illness Initial Comments: 10/13/17 23:59 Patient is an 82 year old female with a significant past medical history of CAFIB, CAD (with stents), CHF, HTN, Hyperlipidemia, CA, COPD, who presents to the ED with complaints of chest pain that began just prior to ED arrival. Patient reports lifting a tea mug when she suddenly began to experience sharp left axillary pain that she states radiated up her shoulder and down her left arm, as well as across her chest to her right arm. She reports chest pain to be a sharp 10/10 pain during initial onset but states it is currently 4/10 while here in the ED. Patient reports experiencing associated nausea, bilateral hand stiffness, and abdominal pain. Denies nausea, vomiting. Denies contact with sick individuals, out of state travelling. Denies trauma to affected area. Denies any other symptoms. Allergies: digoxin, diltiazem HCL Social history: No smoking. No alcohol. No illicit drugs. Surgical history: Colectomy, Hysterectomy, Stent, PMD: Dr. Domínguez <Alexis Fernandez - Last Filed: 10/13/17 23:59> - General History Source: Patient Exam Limitations: No Limitations <Leia Hernandez - Last Filed: 10/14/17 04:54> - General Chief Complaint: Chest Pain Stated Complaint: CHEST PAIN Time Seen by Provider: 10/13/17 21:47 Past History <Alexis Fernandez - Last Filed: 10/13/17 23:59> - Past Medical History Anemia: Yes (polycythemia vera) Cancer: Yes (COLON CANCER, status post colectomy 1997, myelofibrosis) Cardiac Disorders: Yes (a-fib, Stent X2 , S/P CARDIAC CATH) CVA: No COPD: Yes CHF: Yes (history of CHF, but echo showed good systolic function.) DVT: No Dementia: No Diabetes: No Dialysis: No GI Disorders: Yes (ACID REFLUX, GERD, S/P partial colectomy, Colon CA) Disorders: (h/o uterine CA) HTN: Yes Hypercholesterolemia: No Liver Disease: No Seizures: No Thyroid Disease: No - Surgical History Abdominal Surgery: Yes (PARTIAL COLON RESECTION) Appendectomy: No Cardiac Surgery: Yes Cholecystectomy: No Lung Surgery: No Orthopedic Surgery: No - Immunization History Immunization Up to Date: Yes - Suicide/Smoking/Psychosocial Hx Smoking Status: No Smoking History: Never smoked Have you smoked in the past 12 months: No Number of Cigarettes Smoked Daily: 0 Hx Alcohol Use: No Drug/Substance Use Hx: No Substance Use Type: None Hx Substance Use Treatment: No <Leia Hernandez - Last Filed: 10/14/17 04:54> - Past Medical History Allergies/Adverse Reactions: Allergies Allergy/AdvReac Type Severity Reaction Status Date / Time digoxin Allergy Intermediate Vomiting Verified 10/13/17 21:54 diltiazem HCl [From Cardizem] Allergy Verified 10/13/17 21:54 Home Medications: Ambulatory Orders B-12 06/01/17 Claritin 1 PO DAILY 06/01/17 Feosol 325 mg PO DAILY 06/01/17 Folic Acid 1 mg PO DAILY 06/01/17 Lasix 40 mg PO DAILY 06/01/17 Protonix 40 mg PO QID 06/01/17 Allopurinol [Zyloprim -] 100 mg PO DAILY 07/03/17 Multivitamin [Daily Multiple Vitamin] 1 each PO DAILY 07/03/17 Ranitidine HCl [Zantac 75] 75 mg PO ACBK 07/03/17 Ruxolitinib Phosphate [Jakafi] 10 mg PO BID 07/03/17 Guaifenesin AC [Robitussin AC -] 10 ml PO Q8H PRN #120 ud MDD 30 07/06/17 Lactobacillus Acidophilus [Bacid -] 1 tab PO BID 7 Days #14 tab 07/06/17 Patient's Own Medication [Patient's Own Med (Nf) -] 1 each PO DAILY med Patient's Own Medication [Patient's Own Med (Nf) -] 1 each PO HS med 07/06/17 Fluticasone Prop 0.05% Nasal [Flonase -] 1 spray NS BID spray 07/07/17 Furosemide [Lasix -] 40 mg PO DAILY tablet 07/07/17 Metoprolol Succinate [Toprol XL -] 50 mg PO BID tab.sr.24h 07/07/17 Amox-Tr/K Cl [Augmentin - 500Mg Tablet] 1 tab PO BID #14 tab 08/09/17 Review of Systems - Review of Systems Able to Perform ROS?: Yes Comments:: 10/13/17 23:59 GENERAL/CONSTITUTIONAL: No: fever, chills, weakness, loss of appetite. HEAD, EYES, EARS, NOSE AND THROAT: No: change in vision, ear pain, discharge, sore throat, throat swelling. CARDIOVASCULAR: +Chest pain. No: lightheadedness, palpitations, syncope RESPIRATORY: No: cough, shortness of breath, wheezing, hemoptysis, stridor. GASTROINTESTINAL: +Nausea. +abdominal pain. No: vomiting, abdominal cramping, diarrhea, rectal bleeding, constipation. GENITOURINARY: No: dysuria, hematuria, frequency, urgency, flank pain. MUSCULOSKELETAL: No: back pain, neck pain, joint pain, muscle swelling or pain SKIN: No: lesions, pallor, rash or easy bruising. NEUROLOGIC: No: headache, vertigo, paresthesias, weakness ENDOCRINE: No: unexplained weight gain or loss HEMATOLOGIC/LYMPHATIC: No: anemia, easy bleeding, swelling nodes <Alexis Fernandez - Last Filed: 10/13/17 23:59> *Physical Exam - Vital Signs Last Vital Signs Temp Pulse Resp BP Pulse Ox 97.7 F 70 18 129/68 96 10/13/17 21:50 10/13/17 21:50 10/13/17 21:50 10/13/17 21:50 10/13/17 21:50 - Physical Exam Comments: 10/14/17 00:00 GENERAL: The patient is in no acute distress. HEAD: Normal with no signs of trauma. EYES: PERRLA, EOMI, sclera anicteric, conjunctiva clear. ENT: Ears normal, nares patent, oropharynx clear without exudates. Moist mucous membranes. NECK: Normal range of motion, supple without lymphadenopathy, JVD, or masses. LUNGS: Breath sounds equal, clear to auscultation bilaterally. No wheezes, and no crackles. HEART:Regular rate and rhythm, normal S1 and S2 without murmur, rub or gallop. ABDOMEN: Soft, nontender, normoactive bowel sounds. No guarding, no rebound. EXTREMITIES: Normal range of motion, no edema. No clubbing or cyanosis. No erythema, or tenderness. NEUROLOGICAL: Cranial nerves II through XII grossly intact. Normal speech. No focal neurological deficits. MUSCULOSKELETAL: +Reproduction with palpation to left axillary Back nontender to palpation, no CVA tenderness SKIN: Warm, Dry, normal turgor, no rashes or lesions noted. <Alexis Fernandez - Last Filed: 10/13/17 23:59> ED Treatment Course - LABORATORY CBC & Chemistry Diagram: 10/13/17 21:58 10/13/17 21:58 - ADDITIONAL ORDERS Additional order review: Laboratory Results 10/13/17 10/13/17 21:58 21:58 PT with INR 15.00 H INR 1.33 H Sodium 140 Potassium 6.5 H* Chloride 114 H Carbon Dioxide 15 L Anion Gap 11 BUN 58 H Creatinine 3.0 H Creat Clearance w eGFR 14.87 Random Glucose 141 H Calcium 8.3 L Magnesium 2.0 Total Bilirubin 1.1 H D AST 34 ALT 28 Alkaline Phosphatase 344 H Creatine Kinase 64 Troponin I 0.05 B-Natriuretic Peptide 86453.81 H Total Protein 6.8 Albumin 3.6 10/13/17 21:58 RBC 3.00 L MCV 96.8 H MCHC 30.9 L RDW 21.1 H MPV 9.1 Neutrophils % No Result Required. Lymphocytes % No Result Required. - Medications Given in the ED: ED Medications Discontinued Medications Generic Name Dose Route Start Last Admin Trade Name Freq PRN Reason Stop Dose Admin Calcium Gluconate 1,000 mg 10/13/17 23:28 10/13/17 23:57 Calcium Gluconate 10% - IVPB 10/13/17 23:29 1,000 mg ONCE ONE Administration Dextrose 25 gm 10/13/17 23:28 10/13/17 23:57 D50w (Vial) - IVPUSH 10/13/17 23:29 25 gm NOW ONE Administration Ibuprofen 400 mg 10/13/17 22:43 10/13/17 22:53 Motrin - PO 10/13/17 22:44 400 mg ONCE ONE Administration Insulin Human Regular 5 units 10/13/17 23:28 10/13/17 23:58 Novolin R Vial *For Ivpush Or Iv Drip Only* IVPUSH 10/13/17 23:29 5 units ONCE ONE Administration <Alexis Fernandez - Last Filed: 10/13/17 23:59> - LABORATORY CBC & Chemistry Diagram: 10/13/17 21:58 10/13/17 21:58 <Leia Hernandez - Last Filed: 10/14/17 04:54> Medical Decision Making - Medical Decision Making 10/13/17 23:53 Ms Hodges Is an 82-year-old female who presents emergency department with a complaint of chest pain. Patient has multiple medical problems including PCP, coronary artery disease, prior A. fib status post ablation, history of heart failure, currently on Lasix. She states that she lifted a coffee mug which was not that heavy. After she did so she noted pain in her left axilla. The pain radiates down her arm, her left side of her neck, into the right side of her chest. No shortness of breath. Prior to arrival in emergency department her pain was 9/10. Upon my examination pain 4/10. Pain resolved within 2 hours of being in the emergency department. On examination: Heart is regular, no murmur No tachycardia Lungs are clear No abdominal tenderness Patient's pain is reproducible with palpation in the left axilla. She has 1+ lower extremity edema. Differential Diagnosis includes but is not limited to: ACS, CHF, musculoskeletal pain, PE Will do: Labs, EKG Chest x-ray Motrin for pain Will reassess Laboratory Tests 10/13/17 10/13/17 10/13/17 21:58 21:58 21:58 WBC 40.2 H* Hgb 8.9 L Hct 29.0 L Plt Count 820 H PT with INR 15.00 H INR 1.33 H Sodium 140 Potassium 6.5 H* Chloride 114 H Carbon Dioxide 15 L Anion Gap 11 BUN 58 H Creatinine 3.0 H Creat Clearance w eGFR 14.87 Random Glucose 141 H Creatine Kinase 64 Troponin I 0.05 B-Natriuretic Peptide 39027.81 H Patient blood tests are significant for: Elevated white blood cell count (her baseline), elevated potassium, creatinine bump. Of note, patient states that she has been on Lasix was decreased to Lasix every other day, one week ago was increased to Lasix daily. Will initiate gentle hydration (x ray does not demonstrate fluid overloading) Will treat for hyperkalemia (EKG shows no peaked t waves) 10/14/17 00:[address] domínguez Will admit to her service. Will place on telemetry. Call placed to Dr. Nixon. Clinical Impression: chest pain, initial presentation Renal insufficiency, initial presentation Hyperkalemia, initial presentation <Leia Hernandez - Last Filed: 10/14/17 04:54> *DC/Admit/Observation/Transfer - Attestations Scribe Attestion: 10/14/17 00:00 Documentation prepared by Alexis Fernandez, acting as medical leader for Leia Hernandez MD/DO. <Alexis Fernandez - Last Filed: 10/13/17 23:59> - Discharge Dispostion Admit: Yes <Leia Hernandez - Last Filed: 10/14/17 04:54> Diagnosis at time of Disposition: Hyperkalemia, Renal insufficiency Chest pain Qualifiers: Chest pain type: other chest pain Qualified Code(s): R07.89 - Other chest pain - Discharge Dispostion Condition at time of disposition: Stable
[2017-10-13] MEDS ORDERED: IBUPROFEN 400 MG TABLET (FP) PO ONE ×2 (22:43→22:52)
[2017-10-13 22:57] LABS: HEMOGLOBIN 8.9 GM/dL (10.7-15.3)
[2017-10-13 23:18] LABS: ALBUMIN 3.6 g/dl (3.4-5.0); ANION GAP 11 (8-16); BILIRUBIN,TOTAL 1.1 mg/dL (0.2-1.0); BLOOD UREA NITROGEN 58 mg/dL (7-18); CALCIUM 8.3 mg/dL (8.5-10.1); CHLORIDE 114 mmol/L (98-107); CO2 15 mmol/L (21-32); GLUCOSE,RANDOM 141 mg/dL (74-106); SGPT/ALT 28 U/L (12-78); SODIUM 140 mmol/L (136-145); TOT PROT 6.8 g/dl (6.4-8.2)
[2017-10-13 23:21] LABS: ALK PHOS 344 U/L (45-117); N-TERMINAL BNP 20304.81 pg/ml (5-450)
[2017-10-13 23:22] LABS: SGOT/AST 34 U/L (15-37)
[2017-10-13 23:24] LABS: MCH 29.9 pg (25.7-33.7); MCHC 30.9 g/dl (32.0-36.0); MEAN CELL VOLUME 96.8 fl (80-96); MEAN PLT VOLUME 9.1 fl (7.5-11.1); PLATELET COUNT 820 K/MM3 (134-434); POTASSIUM 6.5 mmol/L (3.5-5.1); RDW 21.1 % (11.6-15.6)
[2017-10-13 23:25] LABS: INR 1.33 (0.82-1.09)
[2017-10-13] MEDS ORDERED: CALCIUM GLUCONATE 10% - 1,000 MG/10 ML VIAL IVPB ONE (23:28)
[2017-10-13] MEDS ORDERED: INSULIN REGULAR HUMAN 100 UNITS/ML *VIAL IVPUSH ONE (23:28)
[2017-10-13] MEDS ORDERED: DEXTROSE 50%-WATER - 25 GM/50 ML VIAL IVPUSH ONE (23:28)
[2017-10-13 23:30] LABS: ADD RBC MORPHOLOGY YES; WHITE BLOOD COUNT 40.2 K/mm3 (4.0-10.0)
[2017-10-13] MEDS ORDERED: SODIUM CHLORIDE 1,000 ML IV SCH (23:30)
[2017-10-13] MEDS ORDERED: INSULIN REGULAR HUMAN 100 UNITS/ML *VIAL ONE ×2 (23:36→23:49)
[2017-10-13] MEDS ORDERED: CALCIUM GLUCONATE 10% - 1,000 MG/10 ML VIAL ONE (23:36)
[2017-10-13] MEDS ORDERED: DEXTROSE 50%-WATER 25 GM/50 ML DISP.SYRIN ONE (23:36)
[2017-10-14 00:29] LABS: ANISOCYTOSIS 2+; SMUDGE CELLS FEW
[2017-10-14 00:30] LABS: PLATELET ESTIMATE SIGNIFICANT INCREASE
[2017-10-14 04:05] VITALS: BMI 19.1
[2017-10-14] MEDS ORDERED: SODIUM POLYSTYRENE SULFONATE 15 GM/60 ML BOTTLE PO ONE (07:30)
[2017-10-14] MEDS ORDERED: DEXTROSE 5%-0.45% SALINE 1,000 ML IV SCH ×2 (07:30→13:45)
--- NOTE | 2017-10-14 08:46 | EKG ---
Test Reason : Blood Pressure : / mmHG Vent. Rate : 081 BPM Atrial Rate : 081 BPM P-R Int : 194 ms QRS Dur : 082 ms QT Int : 430 ms P-R-T Axes : 072 036 077 degrees QTc Int : 499 ms SINUS RHYTHM WITH OCCASIONAL PREMATURE VENTRICULAR COMPLEXES NONSPECIFIC ST AND T WAVE ABNORMALITY PROLONGED QT ABNORMAL ECG WHEN COMPARED WITH ECG OF 02-JUL-2017 22:50, PREMATURE VENTRICULAR COMPLEXES ARE NOW PRESENT PREMATURE ATRIAL COMPLEXES ARE NO LONGER PRESENT NONSPECIFIC T WAVE ABNORMALITY NOW EVIDENT IN INFERIOR LEADS Confirmed by PERLA MCCLOUD, HARRY ([id number]) on 10/14/2017 8:46:15 AM Referred By: Confirmed By:HARRY DUNCAN MD
--- NOTE | 2017-10-14 08:58 | CON.CARD ---
Consult Consult Specialty:: Cardiology Reason for Consultation:: CP - History of Present Illness History of Present Illness: Patient is an 82 year old female with a significant past medical history of CAFIB, CAD (with stents), CHF, HTN, Hyperlipidemia, NV, COPD, who presents to the ED with complaints of chest pain that began just prior to ED arrival. Patient reports lifting a tea mug when she suddenly began to experience sharp left axillary pain that she states radiated up her shoulder and down her left arm, as well as across her chest to her right arm. She reports chest pain to be a sharp 10/10 pain during initial onset but states it is currently 4/10 while here in the ED. Patient reports experiencing associated nausea, bilateral hand stiffness, and abdominal pain. Denies nausea, vomiting. Denies contact with sick individuals, out of state travelling. Denies trauma to affected area. Denies any other symptoms. Allergies: digoxin, diltiazem HCL Social history: No smoking. No alcohol. No illicit drugs. Surgical history: Colectomy, Hysterectomy, Stent, PMD: Dr. Domínguez PM Anemia ASHD negative MIBI 2010 CAD 3 V ostial RCA 80-90%, mLAD 50%, D1 80% 2011 celiac artery stenosis colon cancer ARMAAN Ostial RCA 2011 [facility] 3V CAD 06/14/13 PAD s/p LOSS CLAIM CLERK RSFA August 2012 Dr. Mcgee PAD s/p right mid SFA stent 2011 Paroxysmal A fib not on AC due to thrombocytosis but bleeding 2014 polycythemia vera LOSS CLAIM CLERK right SFA ISR 06/14/13 Dr. Mcgee LOSS CLAIM CLERK/stent RSF November 2013 Dr. Mcgee right subclavian stenosis with steal phenomenon 2016 shingles s/AF ablation dr. Golden Parrish 2015 - History Source History Provided By: Patient, Medical Record - Past Medical History Cardio/Vascular: Yes: AFIB, CAD (with stents), CHF, HTN, Hyperlipdemia, NV, Other Pulmonary: Yes: COPD. No: Asthma, Bronchitis, Cancer, O2 Dependent, Pneumonia, Previously Intubated, Pulmonary Embolus, Pulmonary Fibrosis, Sleep Apnea, Other Gastrointestinal: Yes: Cancer (colon), GERD ...: No Psych: Yes: Anxiety. 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, [employer] History of Recent Travel: No Home Medications - Allergies Allergies/Adverse Reactions: Allergies Allergy/AdvReac Type Severity Reaction Status Date / Time digoxin Allergy Intermediate Vomiting Verified 10/13/17 21:54 diltiazem HCl [From Cardizem] Allergy Verified 10/13/17 21:54 - Home Medications Home Medications: Ambulatory Orders B-12 06/01/17 Claritin 1 PO DAILY 06/01/17 Feosol 325 mg PO DAILY 06/01/17 Folic Acid 1 mg PO DAILY 06/01/17 Lasix 40 mg PO DAILY 06/01/17 Protonix 40 mg PO QID 06/01/17 Allopurinol [Zyloprim -] 100 mg PO DAILY 07/03/17 Multivitamin [Daily Multiple Vitamin] 1 each PO DAILY 07/03/17 Ranitidine HCl [Zantac 75] 75 mg PO ACBK 07/03/17 Ruxolitinib Phosphate [Jakafi] 10 mg PO BID 07/03/17 Guaifenesin AC [Robitussin AC -] 10 ml PO Q8H PRN #120 ud MDD 30 07/06/17 Lactobacillus Acidophilus [Bacid -] 1 tab PO BID 7 Days #14 tab 07/06/17 Patient's Own Medication [Patient's Own Med (Nf) -] 1 each PO DAILY med Patient's Own Medication [Patient's Own Med (Nf) -] 1 each PO HS med 07/06/17 Fluticasone Prop 0.05% Nasal [Flonase -] 1 spray NS BID spray 07/07/17 Furosemide [Lasix -] 40 mg PO DAILY tablet 07/07/17 Metoprolol Succinate [Toprol XL -] 50 mg PO BID tab.sr.24h 07/07/17 Amox-Tr/K Cl [Augmentin - 500Mg Tablet] 1 tab PO BID #14 tab 08/09/17 Family Disease History - Family Disease History Family Disease History: Heart Disease: Father, Mother Review of Systems - Review of Systems Constitutional: reports: No Symptoms Eyes: reports: No Symptoms HENT: reports: No Symptoms Neck: reports: No Symptoms Cardiovascular: reports: Chest Pain Gastrointestinal: reports: No Symptoms Genitourinary: reports: No Symptoms Breasts: reports: No Symptoms Reported Musculoskeletal: reports: No Symptoms Integumentary: reports: No Symptoms Neurological: reports: No Symptoms Endocrine: reports: No Symptoms Hematology/Lymphatic: reports: No Symptoms Psychiatric: reports: No Symptoms Vital Signs: Vital Signs Temperature 97.4 F L 10/14/17 06:00 Pulse Rate 59 L 10/14/17 06:00 Respiratory Rate 16 10/14/17 06:00 Blood Pressure 117/51 10/14/17 06:00 O2 Sat by Pulse Oximetry (%) 98 10/14/17 03:30 Constitutional: Yes: Well Nourished, No Distress, Calm Eyes: Yes: WNL, Conjunctiva Clear, EOM Intact HENT: Yes: WNL, Atraumatic, Normocephalic Neck: Yes: WNL, Supple, Trachea Midline Respiratory: Yes: WNL, Regular, CTA Bilaterally Gastrointestinal: Yes: WNL, Normal Bowel Sounds Renal/: Yes: WNL Cardiovascular: Yes: WNL, Regular Rate and Rhythm Musculoskeletal: Yes: WNL Extremities: Yes: WNL Integumentary: Yes: WNL Neurological: Yes: WNL, Alert, Oriented ...Motor Strength: WNL Psychiatric: Yes: WNL, Alert, Oriented - Other Data Labs, Other Data: CBC, BMP 10/13/17 21:58 10/13/17 21:58 INR, PTT INR 1.33 (0.82-1.09) H 10/13/17 21:58 Troponin, BNP 10/13/17 21:58 Troponin I 0.05 B-Natriuretic Peptide 43027.81 H Troponin, BNP 10/13/17 21:58 Troponin I 0.05 B-Natriuretic Peptide 40755.81 H Imaging - Results Chest X-ray: Image Reviewed (no i/e) EKG: Image Reviewed (sr rep abn) Problem List - Problems (1) Chest pain Code(s): R07.9 - CHEST PAIN, UNSPECIFIED Qualifiers: Chest pain type: other chest pain Qualified Code(s): R07.89 - Other chest pain; R07.8 - Other chest pain (2) Renal insufficiency Code(s): N28.9 - DISORDER OF KIDNEY AND URETER, UNSPECIFIED (3) Hyperkalemia Code(s): E87.5 - HYPERKALEMIA (4) Acute kidney failure Code(s): N17.9 - ACUTE KIDNEY FAILURE, UNSPECIFIED (5) Atrial fibrillation and flutter Code(s): I48.91 - UNSPECIFIED ATRIAL FIBRILLATION; I48.92 - UNSPECIFIED ATRIAL FLUTTER (6) Atypical chest pain Code(s): R07.89 - OTHER CHEST PAIN (7) Bronchitis Code(s): J40 - BRONCHITIS, NOT SPECIFIED ACUTE OR CHRONIC (8) Diarrhea Code(s): R19.7 - DIARRHEA, UNSPECIFIED (9) Fever Code(s): R50.9 - FEVER, UNSPECIFIED Qualifiers: Fever type: due to other condition Qualified Code(s): R50.81 - Fever presenting with conditions classified elsewhere (10) Hyperlipidemia Code(s): E78.5 - HYPERLIPIDEMIA, UNSPECIFIED (11) Hyponatremia Code(s): E87.1 - HYPO-OSMOLALITY AND HYPONATREMIA (12) Myelofibrosis Code(s): D75.81 - MYELOFIBROSIS (13) Palpitations Code(s): R00.2 - PALPITATIONS (14) Polycythemia rubra vera Code(s): D45 - POLYCYTHEMIA VERA (15) Sepsis Code(s): A41.9 - SEPSIS, UNSPECIFIED ORGANISM (16) Systolic CHF Code(s): I50.20 - UNSPECIFIED SYSTOLIC (CONGESTIVE) HEART FAILURE (17) Traumatic ecchymosis of left lower leg Code(s): S80.12XA - CONTUSION OF LEFT LOWER LEG, INITIAL ENCOUNTER Qualifiers: Encounter type: initial encounter Qualified Code(s): S80.12XA - Contusion of left lower leg, initial encounter (18) Anemia Code(s): D64.9 - ANEMIA, UNSPECIFIED (19) CHF (congestive heart failure) Code(s): I50.9 - HEART FAILURE, UNSPECIFIED (20) COPD (chronic obstructive pulmonary disease) Code(s): J44.9 - CHRONIC OBSTRUCTIVE PULMONARY DISEASE, UNSPECIFIED (21) GERD (gastroesophageal reflux disease) Code(s): K21.9 - GASTRO-ESOPHAGEAL REFLUX DISEASE WITHOUT ESOPHAGITIS (22) HTN (hypertension) Code(s): I10 - ESSENTIAL (PRIMARY) HYPERTENSION (23) History of colon cancer Code(s): Z85.038 - PERSONAL HISTORY OF MALIGNANT NEOPLASM OF LARGE INTESTINE (24) History of hypertension Code(s): Z86.79 - PERSONAL HISTORY OF OTHER DISEASES OF THE CIRCULATORY SYSTEM (25) History of uterine cancer Code(s): Z85.42 - PERSONAL HISTORY OF MALIGNANT NEOPLASM OF OTH PRT UTERUS (26) Leukocytosis Code(s): D72.829 - ELEVATED WHITE BLOOD CELL COUNT, UNSPECIFIED Qualifiers: Leukocytosis type: other Qualified Code(s): D72.828 - Other elevated white blood cell count (27) Mitral regurgitation Code(s): I34.0 - NONRHEUMATIC MITRAL (VALVE) INSUFFICIENCY Assessment/Plan atypical cp r/o mi pad ashd pvera paf s/p ablation hyperkalemia elevated bnp ? secondary to ARF r/o chf moderately reduced ef moderate MR plan renal consult / evaluation telemetry consider d/c IVF hold lasix cont toprol
[2017-10-14] MEDS ORDERED: CLOPIDOGREL BISULFATE 75 MG TABLET (FP) PO SCH (13:45)
[2017-10-14 14:36] LABS: ALBUMIN 3.2 g/dl (3.4-5.0); ALK PHOS 302 U/L (45-117); ANION GAP 11 (8-16); BILIRUBIN,TOTAL 0.9 mg/dL (0.2-1.0); BLOOD UREA NITROGEN 57 mg/dL (7-18); CALCIUM 8.2 mg/dL (8.5-10.1); CHLORIDE 115 mmol/L (98-107); CO2 15 mmol/L (21-32); CREATININE 3.1 mg/dL (0.55-1.02); GLUCOSE,RANDOM 134 mg/dL (74-106); POTASSIUM 5.5 mmol/L (3.5-5.1); SGOT/AST 22 U/L (15-37); SGPT/ALT 25 U/L (12-78); SODIUM 141 mmol/L (136-145); TOT PROT 6.1 g/dl (6.4-8.2)
--- NOTE | 2017-10-14 20:54 | HP ---
Admitting History and Physical - Admission Chief Complaint: left shoulder, arm and anterior chest pain History of Present Illness: 82 yo female who developed yesterday left shoulder pain and upper extremity pain reproducible and increased by movement. She presented to ER and was found to have acute renal failure with a Cr= 3 and minor changes on her EKG in the lateral leads. The patient's baseline and creatinine level on 08/18/17 was 2.19. The patient does not recall any weight lifting, or trauma to the left chest. Her last mammogram was 1 year ago and had no changes according to the patient. 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 Marino. her dose of lasix was increased recently from 40 mg every other day to 40 mg daily. She is not taking any K supplements. Limitations to Obtaining History: No Limitations - Past Medical History Cardiovascular: Yes: AFIB, CAD (with stents), CHF, HTN, Hyperlipdemia, PR, Other Pulmonary: Yes: COPD. No: Asthma, Bronchitis, Cancer, O2 Dependent, Pneumonia, Previously Intubated, Pulmonary Embolus, Pulmonary Fibrosis, Sleep Apnea, Other Gastrointestinal: Yes: Cancer (colon), GERD Renal/: Yes: Renal Failure ...: No Heme/Onc: Yes: B12 Deficiency, Other. No: Anemia, Bleeding Disorder, Cancer, Current Radiation Therapy, Hemochromatosis, Hypercoaguable State, Myeloproliferative Synd, Sickle Cell Disease, Sickle Cell Trait, Thrombocytopenia Psych: Yes: Anxiety. No: Addictions, Bipolar, Depression, Panic, Psychosis, Schizophrenia, Other Dermatology: Yes: Basal Cell - Past Surgical History Past Surgical History: Yes: Colectomy, Hysterectomy, Stent ((cardiac)) - Smoking History Smoking history: Never smoked Have you smoked in the past 12 months: No Aproximately how many cigarettes per day: 0 - Alcohol/Substance Use Hx Alcohol Use: No History of Substance Use: reports: None - Social History ADL: Support Services Occupation: [employer], [employer] History of Recent Travel: No Home Medications - Allergies Allergies/Adverse Reactions: Allergies Allergy/AdvReac Type Severity Reaction Status Date / Time digoxin Allergy Intermediate Vomiting Verified 10/13/17 21:54 diltiazem HCl [From Cardizem] Allergy Verified 10/13/17 21:54 - Home Medications Home Medications: Ambulatory Orders B-12 1,000 units DAILY 06/01/17 Claritin 1 tab PO DAILY 06/01/17 Feosol 325 mg PO DAILY 06/01/17 Folic Acid 1 mg PO DAILY 06/01/17 Lasix 40 mg PO DAILY 06/01/17 Protonix 40 mg PO QID 06/01/17 Allopurinol [Zyloprim -] 100 mg PO DAILY 07/03/17 Multivitamin [Daily Multiple Vitamin] 1 each PO DAILY 07/03/17 Ranitidine HCl [Zantac 75] 75 mg PO ACBK 07/03/17 Ruxolitinib Phosphate [Jakafi] 10 mg PO BID 07/03/17 Lactobacillus Acidophilus [Bacid -] 1 tab PO BID 7 Days #14 tab 07/06/17 Furosemide [Lasix -] 40 mg PO DAILY tablet 07/07/17 Metoprolol Succinate [Toprol XL -] 50 mg PO BID tab.sr.24h 07/07/17 Fluticasone Prop 0.05% Nasal [Flonase -] 1 spray NS DAILY PRN 10/14/17 Family Disease History - Family Disease History Family Disease History: Heart Disease: Father, Mother Review of Systems - Review of Systems Constitutional: reports: Weakness Eyes: reports: No Symptoms HENT: reports: No Symptoms Neck: reports: No Symptoms Cardiovascular: reports: Edema, Shortness of Breath (with ambulation) Respiratory: reports: Exercise Intolerance, SOB on Exertion. denies: Cough Gastrointestinal: reports: No Symptoms Genitourinary: reports: No Symptoms Musculoskeletal: reports: Muscle Weakness Integumentary: reports: Pruritis Neurological: reports: Weakness Endocrine: reports: No Symptoms Hematology/Lymphatic: reports: No Symptoms Psychiatric: reports: Anxiety Physical Examination Vital Signs: Vital Signs Temperature 97.8 F 10/14/17 18:00 Pulse Rate 68 10/14/17 18:00 Respiratory Rate 18 10/14/17 18:00 Blood Pressure 94/61 10/14/17 18:00 O2 Sat by Pulse Oximetry (%) 98 10/14/17 03:30 Constitutional: Yes: No Distress HENT: Yes: Atraumatic, Normocephalic Neck: Yes: Supple, Trachea Midline Cardiovascular: Yes: Regular Rate and Rhythm, Murmur (systolic ejectional murmour jhoan kim left intercostal space) Gastrointestinal: Yes: Soft Breast(s): Yes: Other (palpable tender fibrotic changes, no dominant nodule palpated) Extremities: No: Calf Tenderness Edema: Yes Edema: LLE: 2+, RLE: 2+ Peripheral Pulses WNL: Yes Integumentary: Yes: Other (dry skin, no rashes) Neurological: Yes: Alert, Oriented Psychiatric: Yes: Alert, Oriented Labs: CBC, BMP 10/13/17 21:58 10/14/17 13:40 Imaging - Results X-ray: Other (cardiomegaly, no pleural effusion , no infiltartes, minor hilar congestive changes) EKG: Other (left V4,5,6,T wave changes) Problem List - Problems (1) Chest pain Assessment/Plan: atypical,and most likely musculo skeletal complete 3 sets of cardiac enzymes serial EKG x rays of the left ribs Code(s): R07.9 - CHEST PAIN, UNSPECIFIED Qualifiers: Chest pain type: other chest pain Qualified Code(s): R07.89 - Other chest pain; R07.8 - Other chest pain (2) Acute kidney failure Assessment/Plan: pre renal azotemia hols Lasix D5 1/2 NS at 46 cc / hr repeat CMP renal US Code(s): N17.9 - ACUTE KIDNEY FAILURE, UNSPECIFIED (3) Polycythemia rubra vera Assessment/Plan: at baseline, continue Jakafi Code(s): D45 - POLYCYTHEMIA VERA (4) Hyperkalemia Assessment/Plan: Kayexalate po 30 gm and gentle iv sedation Code(s): E87.5 - HYPERKALEMIA (5) Breast fibrosclerosis Assessment/Plan: mammogram and breast US as an outpatient Code(s): N60.39 - FIBROSCLEROSIS OF UNSPECIFIED BREAST
--- NOTE | 2017-10-14 22:23 | EKG ---
Test Reason : Blood Pressure : / mmHG Vent. Rate : 063 BPM Atrial Rate : 063 BPM P-R Int : 178 ms QRS Dur : 078 ms QT Int : 476 ms P-R-T Axes : 083 051 -17 degrees QTc Int : 487 ms SINUS RHYTHM WITH PREMATURE ATRIAL COMPLEXES NONSPECIFIC T WAVE ABNORMALITY PROLONGED QT ABNORMAL ECG WHEN COMPARED WITH ECG OF 13-OCT-2017 22:04, PREMATURE VENTRICULAR COMPLEXES ARE NO LONGER PRESENT PREMATURE ATRIAL COMPLEXES ARE NOW PRESENT Confirmed by PERLA MCCLOUD, HARRY ([id number]) on 10/14/2017 10:23:17 PM Referred By: Confirmed By:HARRY DUNCAN MD
[2017-10-15 06:34] VITALS: TEMP 97
[2017-10-15 08:35] VITALS: BP 114/59; PULSE 63
--- NOTE | 2017-10-15 08:39 | PN ---
Progress Note, Physician History of Present Illness: Patient is an 82 year old female with a significant past medical history of CAFIB, CAD (with stents), CHF, HTN, Hyperlipidemia, PA, COPD, who presents to the ED with complaints of chest pain that began just prior to ED arrival. Patient reports lifting a tea mug when she suddenly began to experience sharp left axillary pain that she states radiated up her shoulder and down her left arm, as well as across her chest to her right arm. She reports chest pain to be a sharp 10/10 pain during initial onset but states it is currently 4/10 while here in the ED. Patient reports experiencing associated nausea, bilateral hand stiffness, and abdominal pain. Denies nausea, vomiting. Denies contact with sick individuals, out of state travelling. Denies trauma to affected area. Denies any other symptoms. Allergies: digoxin, diltiazem HCL Social history: No smoking. No alcohol. No illicit drugs. Surgical history: Colectomy, Hysterectomy, Stent, PMD: Dr. Domínguez PM Anemia ASHD negative MIBI 2010 CAD 3 V ostial RCA 80-90%, mLAD 50%, D1 80% 2011 celiac artery stenosis colon cancer ARMAAN Ostial RCA 2011 [facility] 3V CAD 06/14/13 PAD s/p FURNACE KEEPER RSFA August 2012 Dr. Mcgee PAD s/p right mid SFA stent 2011 Paroxysmal A fib not on AC due to thrombocytosis but bleeding 2014 polycythemia vera FURNACE KEEPER right SFA ISR 06/14/13 Dr. Mcgee FURNACE KEEPER/stent RSF November 2013 Dr. Mcgee right subclavian stenosis with steal phenomenon 2016 shingles s/AF ablation dr. Golden Parrish 2015 - Current Medication List Current Medications: Active Medications Non-Formulary Medication (Patient's Own Med) 75 each PO DAILY BRANDEN Non-Formulary Medication (Patient's Own Med) 50 each PO DAILY BRANDEN Non-Formulary Medication (Patient's Own Med) 40 each PO DAILY BRANDEN Non-Formulary Medication (Patient's Own Med) 150 each PO DAILY BRANDEN Non-Formulary Medication (Patient's Own Med) 10 each PO DAILY BRANDEN - Objective Vital Signs: Vital Signs Temperature 97 F L 10/15/17 08:33 Pulse Rate 63 10/15/17 08:33 Respiratory Rate 18 10/15/17 08:33 Blood Pressure 114/59 10/15/17 08:33 O2 Sat by Pulse Oximetry (%) 98 10/15/17 05:00 Eyes: Yes: WNL, Conjunctiva Clear, EOM Intact HENT: Yes: WNL, Atraumatic, Normocephalic Neck: Yes: WNL, Supple, Trachea Midline Cardiovascular: Yes: WNL, Regular Rate and Rhythm Respiratory: Yes: WNL, Regular, CTA Bilaterally Gastrointestinal: Yes: WNL, Normal Bowel Sounds Genitourinary: Yes: WNL Musculoskeletal: Yes: WNL Extremities: Yes: WNL Edema: No Integumentary: Yes: WNL Neurological: Yes: WNL, Alert, Oriented ...Motor Strength: WNL Psychiatric: Yes: WNL Labs: CBC, BMP 10/13/17 21:58 10/14/17 13:40 INR, PTT INR 1.33 (0.82-1.09) H 10/13/17 21:58 Problem List - Problems (1) Chest pain Code(s): R07.9 - CHEST PAIN, UNSPECIFIED Qualifiers: Qualified Code(s): R07.89 - Other chest pain; R07.8 - Other chest pain (2) Renal insufficiency Code(s): N28.9 - DISORDER OF KIDNEY AND URETER, UNSPECIFIED (3) Hyperkalemia Code(s): E87.5 - HYPERKALEMIA (4) Acute kidney failure Code(s): N17.9 - ACUTE KIDNEY FAILURE, UNSPECIFIED (5) Atrial fibrillation and flutter Code(s): I48.91 - UNSPECIFIED ATRIAL FIBRILLATION; I48.92 - UNSPECIFIED ATRIAL FLUTTER (6) Atypical chest pain Code(s): R07.89 - OTHER CHEST PAIN (7) Bronchitis Code(s): J40 - BRONCHITIS, NOT SPECIFIED ACUTE OR CHRONIC (8) Diarrhea Code(s): R19.7 - DIARRHEA, UNSPECIFIED (9) Fever Code(s): R50.9 - FEVER, UNSPECIFIED Qualifiers: Qualified Code(s): R50.81 - Fever presenting with conditions classified elsewhere (10) Hyperlipidemia Code(s): E78.5 - HYPERLIPIDEMIA, UNSPECIFIED (11) Hyponatremia Code(s): E87.1 - HYPO-OSMOLALITY AND HYPONATREMIA (12) Myelofibrosis Code(s): D75.81 - MYELOFIBROSIS (13) Palpitations Code(s): R00.2 - PALPITATIONS (14) Polycythemia rubra vera Code(s): D45 - POLYCYTHEMIA VERA (15) Sepsis Code(s): A41.9 - SEPSIS, UNSPECIFIED ORGANISM (16) Systolic CHF Code(s): I50.20 - UNSPECIFIED SYSTOLIC (CONGESTIVE) HEART FAILURE (17) Traumatic ecchymosis of left lower leg Code(s): S80.12XA - CONTUSION OF LEFT LOWER LEG, INITIAL ENCOUNTER Qualifiers: Qualified Code(s): S80.12XA - Contusion of left lower leg, initial encounter (18) Anemia Code(s): D64.9 - ANEMIA, UNSPECIFIED (19) CHF (congestive heart failure) Code(s): I50.9 - HEART FAILURE, UNSPECIFIED (20) COPD (chronic obstructive pulmonary disease) Code(s): J44.9 - CHRONIC OBSTRUCTIVE PULMONARY DISEASE, UNSPECIFIED (21) GERD (gastroesophageal reflux disease) Code(s): K21.9 - GASTRO-ESOPHAGEAL REFLUX DISEASE WITHOUT ESOPHAGITIS (22) HTN (hypertension) Code(s): I10 - ESSENTIAL (PRIMARY) HYPERTENSION (23) History of colon cancer Code(s): Z85.038 - PERSONAL HISTORY OF MALIGNANT NEOPLASM OF LARGE INTESTINE (24) History of hypertension Code(s): Z86.79 - PERSONAL HISTORY OF OTHER DISEASES OF THE CIRCULATORY SYSTEM (25) History of uterine cancer Code(s): Z85.42 - PERSONAL HISTORY OF MALIGNANT NEOPLASM OF OTH PRT UTERUS (26) Leukocytosis Code(s): D72.829 - ELEVATED WHITE BLOOD CELL COUNT, UNSPECIFIED Qualifiers: Qualified Code(s): D72.828 - Other elevated white blood cell count (27) Mitral regurgitation Code(s): I34.0 - NONRHEUMATIC MITRAL (VALVE) INSUFFICIENCY Assessment/Plan atypical cp r/o mi pad ashd pvera paf s/p ablation hyperkalemia elevated bnp ? secondary to ARF r/o chf moderately reduced ef moderate MR plan renal consult / evaluation telemetry consider d/c IVF hold lasix cont toprol f/u BUN /CR - if improving d/c home off lasix with f/u of renal function and CHF as the outpatient
--- NOTE | 2017-10-15 15:31 | EKG ---
Test Reason : Blood Pressure : / mmHG Vent. Rate : 066 BPM Atrial Rate : 066 BPM P-R Int : 172 ms QRS Dur : 080 ms QT Int : 452 ms P-R-T Axes : 074 052 -10 degrees QTc Int : 473 ms SINUS RHYTHM WITH OCCASIONAL PREMATURE VENTRICULAR COMPLEXES NONSPECIFIC T WAVE ABNORMALITY PROLONGED QT ABNORMAL ECG WHEN COMPARED WITH ECG OF 14-OCT-2017 10:11, PREMATURE VENTRICULAR COMPLEXES ARE NOW PRESENT PREMATURE ATRIAL COMPLEXES ARE NO LONGER PRESENT Confirmed by HARRY DUNCAN MD ([id number]) on 10/15/2017 3:31:03 PM Referred By: Durga COOPER Confirmed By:HARRY DUNCAN MD
--- NOTE | 2017-10-15 22:08 | DS ---
Physical Examination Vital Signs: Vital Signs Temperature 97 F L 10/15/17 08:33 Pulse Rate 63 10/15/17 08:33 Respiratory Rate 18 10/15/17 08:33 Blood Pressure 114/59 10/15/17 08:33 O2 Sat by Pulse Oximetry (%) 98 10/15/17 05:00 Constitutional: Yes: No Distress, Calm Eyes: Yes: Conjunctiva Clear, EOM Intact HENT: Yes: Atraumatic Neck: Yes: Supple, Trachea Midline Cardiovascular: Yes: Pulse Irregular Respiratory: Yes: Regular, CTA Bilaterally. No: Dullness, Rhonchi, SOB, Tachypnea, Wheezes Gastrointestinal: Yes: Normal Bowel Sounds, Soft. No: Hepatomegaly, Splenomegaly, Tenderness, Epigastrium ...Rectal Exam: Yes: Deferred Breast(s): Yes: Left (pain) Extremities: No: Calf Tenderness Edema: Yes Edema: LLE: 1+, RLE: 1+ Peripheral Pulses WNL: Yes Integumentary: Yes: WNL Neurological: Yes: Alert, Oriented Psychiatric: Yes: Alert, Oriented Labs: CBC, BMP 10/13/17 21:58 10/14/17 13:40 Discharge Summary Reason For Visit: CHEST PAIN HYPERKALEMIA RENAL INSUFFIC 82 yo female admitted for atypical chest pain was found to be in ARF on top of CRF. Work up for acute coronary event was negative. In addition the patient had an US of her kidneys, and pelvis and lateral ribs X rays. All these studies and serial EKG's were negative. The pateint continues to have apin in the left lateral chest area, which is triggered by palpation. Her last mammogram was a year ago and did not have any significant findings. A referral for outpatient mammogram was given Hospital Course: Patient's work up for cardiac event was negative. The patient received gentle hydration and her LAsix was placed on hold. She will be discharged home with instructions to follow up in the office within 1 week with either the Switch Technician or myself. Condition: Stable - Instructions Diet, Activity, Other Instructions: Resume previous activities and home medss Follow-up with Dr. Domínguez and Switch Technician as scheduled Referrals: Winnie Domínguez MD [Primary Care Provider] - Disposition: HOME - Home Medications Comprehensive Discharge Medication List: Ambulatory Orders B-12 1,000 units DAILY 06/01/17 Claritin 1 tab PO DAILY 06/01/17 Feosol 325 mg PO DAILY 06/01/17 Folic Acid 1 mg PO DAILY 06/01/17 Protonix 40 mg PO QID 06/01/17 Multivitamin [Daily Multiple Vitamin] 1 each PO DAILY 07/03/17 Ranitidine HCl [Zantac 75] 75 mg PO ACBK 07/03/17 Ruxolitinib Phosphate [Jakafi] 10 mg PO BID 07/03/17 Lactobacillus Acidophilus [Bacid -] 1 tab PO BID 7 Days #14 tab 07/06/17 Clopidogrel Bisulfate [Plavix -] 75 mg PO DAILY tablet 10/15/17 Metoprolol Succinate [Toprol XL -] 50 mg PO DAILY 30 Days #30 tab.sr.24h Patient's Own Medication [Patient's Own Med (Nf) -] 10 each PO BID 30 Days #60 med 10/15/17 Patient's Own Medication [Patient's Own Med (Nf) -] 40 each PO DAILY 30 Days # 30 tab.sr 10/15/17 Patient's Own Medication [Patient's Own Med (Nf) -] 50 each PO DAILY 30 Days # 30 med 10/15/17 Patient's Own Medication [Patient's Own Med (Nf) -] 75 each PO DAILY 30 Days # 30 med 10/15/17 Patient's Own Medication [Patient's Own Med (Nf) -] 150 each PO BID #60 med
== END 2017-10-15 13:54 | disposition home or self-care (01) ==
LOC: JER 21:40 → JERBED 10-14 00:04 → INTOOBSV 10-14 00:04 → UNDOADMOB 10-14 00:04 → JERBED 10-14 03:29 → J4W 10-14 03:29
PROVIDERS: ADMIT Internal Medicine; ATTEND Internal Medicine
PROC: 3E033VG Introduction of Insulin into Peripheral Vein, Percutaneous Approach (ICD-10-PCS; principal; 2017-10-14)
PROC: 3E033GC Introduction of Other Therapeutic Substance into Peripheral Vein, Percutaneous Approach (ICD-10-PCS; 2017-10-14)
PROC: 3E0337Z Introduction of Electrolytic and Water Balance Substance into Peripheral Vein, Percutaneous Approach (ICD-10-PCS; 2017-10-14)
DX: R07.89 Other chest pain (principal); I10 Essential (primary) hypertension; I48.2 Chronic atrial fibrillation; I48.92 Unspecified atrial flutter; I50.20 Unspecified systolic (congestive) heart failure; I34.0 Nonrheumatic mitral (valve) insufficiency; E87.5 Hyperkalemia; E87.1 Hypo-osmolality and hyponatremia; D72.829 Elevated white blood cell count, unspecified; D64.9 Anemia, unspecified; D45 Polycythemia vera; D75.81 Myelofibrosis; N28.9 Disorder of kidney and ureter, unspecified; N60.39 Fibrosclerosis of unspecified breast; N17.9 Acute kidney failure, unspecified; J40 Bronchitis, not specified as acute or chronic; J44.9 Chronic obstructive pulmonary disease, unspecified; A41.9 Sepsis, unspecified organism; R19.7 Diarrhea, unspecified; R00.2 Palpitations; R50.9 Fever, unspecified; S80.12XA Contusion of left lower leg, initial encounter; K21.9 Gastro-esophageal reflux disease without esophagitis; Z85.038 Personal history of other malignant neoplasm of large intestine; Z85.42 Personal history of malignant neoplasm of other parts of uterus; X58.XXXA Exposure to other specified factors, initial encounter; Y93.89 Activity, other specified; Y92.89 Other specified places as the place of occurrence of the external cause
CPT/HCPCS: 36415; 71045-TC-FY; 71101-TC-FY; 76775-TC; 76856-TC; 80053; 82550; 83735; 83880; 84484; 85025; 85610; 93005; 93010; 96374; 96375; 99283-25; G0378; J7030